=== PATIENT | female | born 1970 | race Caucasian/White ===

== ENCOUNTER 2017-09-26 18:29 | Emergency (ER) | payer BC, OTHER ==
[~2017-09-26] VITALS: Ht 152.4 cm; Wt 129.8 kg
[~2017-09-26 18:29] MED LIST: ADVIN10/60 INH; ALBUAER19 INH; CLR10 PO; IBUP-1427 PO; MULT-506 PO; PRLSR20 PO; SERT1TAB71 PO
[2017-09-26 18:37] VITALS: TEMP 36.7; Ht 152.4 cm; Wt 129.8 kg
--- NOTE | 2017-09-26 18:55 | EMERGENCY ROOM VISIT NOTE ---
History First contact with patient: 18:40 Chief Complaint: URINARY SYMPTOMS Stated Complaint: FEEL LIKE I HAVE A UTI History of Present Illness The patient is a 47 year old female who presents to the Emergency Room with complaints of urinary frequency and burning. This has been on going for 2 days. Lower suprapubic discomfort. No back pain. No fevers. No trauma. No nausea or vomiting. Taking Azo for symptoms. Went to urgent care and urine dip was "negative" thus referred here for evaluation. Denies frequent UTI resistance. Last UTI a year ago. No vaginal complaints or diarrhea. Started drinking several "gallons" of water and cranberry juice today. Source of History: patient Onset: 2 days ago Position: other (urinary system) Symptom Intensity: moderate Quality: cramping Modifying Factors (Worsening): urination Associated Symptoms: + abdominal pain (suprapubic), No fevers, No chills, No nausea, No vomiting Review of Systems See HPI for pertinent positives and negatives. A total of ten systems were reviewed and were otherwise negative. Past Medical/Surgical History Medical Problems: (1) Asthma Family History Aneurysm Social History Smoking Status: Never Smoker Marital Status: Occupation Status: employed Current/Historical Medications Scheduled Albuterol Sulf (Proventil 0.083% 2.5MG/3ML), 2.5 MG INH BID Furosemide (Lasix), 20 MG PO DAILY Loratadine (Claritin), 10 MG PO DAILY Multivitamin (Multivitamin), 1 TAB PO DAILY Nitrofurantoin Monohyd Macrocr (Macrobid), 100 MG PO BID Ranitidine (Zantac), 150 MG PO BID Scheduled PRN Ibuprofen Tab (Motrin), 600 MG PO Q4H PRN for Pain Phenazopyridine Hcl (Azo Tabs), 190 MG PO BID PRN for uti Physical Exam Vital Signs Date Time Temp Pulse Resp B/P (MAP) Pulse Ox O2 Delivery O2 Flow Rate FiO2 09/26/17 20:57 74 18 148/97 100 Room Air 09/26/17 18:37 36.7 77 20 174/108 100 Room Air Physical Exam GENERAL: Awake, alert, well-appearing, in no distress HENT: Normocephalic, atraumatic. Oropharynx unremarkable. EYES: Normal conjunctiva. Sclera non-icteric. NECK: Supple. No nuchal rigidity. RESPIRATORY: Clear to auscultation. No wheezes. Normal respiratory effort. CARDIAC: Normal rate. Normal rhythm. Extremities warm and well perfused. GI: Soft, non-distended. Mild suprapubic tenderness to palpation. No rebound or guarding. No masses. RECTAL: Deferred. MUSCULOSKELETAL: Atraumatic. Chest examination reveals no tenderness. There is no CVA tenderness to palpation. LOWER EXTREMITIES: Calves are equal size bilaterally and non-tender. No edema NEURO: Normal sensorium. No sensory or motor deficits noted. No facial droop. SKIN: Warm and dry. No rash or jaundice noted. Medical Decision & Procedures Laboratory Results 09/26/17 21:05 Red Blood Count 4.93, Mean Corpuscular Volume 88.8, Mean Corpuscular Hemoglobin 29.4, Mean Corpuscular Hemoglobin Concent 33.1, Mean Platelet Volume 10.1, Neutrophils (%) (Auto) 49.4, Lymphocytes (%) (Auto) 38.9, Monocytes (%) (Auto) 7.6, Eosinophils (%) (Auto) 3.3, Basophils (%) (Auto) 0.7, Neutrophils # (Auto) 4.08, Lymphocytes # (Auto) 3.21, Monocytes # (Auto) 0.63, Eosinophils # (Auto) 0.27, Basophils # (Auto) 0.06 09/26/17 21:05 Test 09/26/17 18:50 09/26/17 21:05 Urine Color YELLOW Urine Appearance CLEAR (CLEAR) Urine pH 7.0 (4.5-7.5) Urine Specific [place] 1.003 (1.000-1.030) Urine Protein NEG (NEG) Urine Glucose (UA) NEG (NEG) Urine Ketones NEG (NEG) Urine Occult Blood 2+ (NEG) Urine Nitrite NEG (NEG) Urine Bilirubin NEG (NEG) Urine Urobilinogen NEG (NEG) Urine Leukocyte Esterase TRACE (NEG) Urine WBC (Auto) /hpf (0-5) Urine RBC (Auto) /hpf (0-4) Urine Hyaline Casts (Auto) /lpf (0-5) Urine Epithelial Cells (Auto) /lpf (0-5) Urine Bacteria (Auto) (NEG) Urine RBC 0-4 /hpf (0-4) Urine WBC 0 /hpf (0-5) Urine Epithelial Cells 5-10 /lpf (0-5) Urine Bacteria NEG (NEG) White Blood Count 8.26 K/uL (4.8-10.8) Red Blood Count 4.93 M/uL (4.2-5.4) Hemoglobin 14.5 g/dL (12.0-16.0) Hematocrit 43.8 % (37-47) Mean Corpuscular Volume 88.8 fL (80-100) Mean Corpuscular Hemoglobin 29.4 pg (25-34) Mean Corpuscular Hemoglobin Concent 33.1 g/dl (32-36) Platelet Count 289 K/uL (130-400) Mean Platelet Volume 10.1 fL (7.4-10.4) Neutrophils (%) (Auto) 49.4 % Lymphocytes (%) (Auto) 38.9 % Monocytes (%) (Auto) 7.6 % Eosinophils (%) (Auto) 3.3 % Basophils (%) (Auto) 0.7 % Neutrophils # (Auto) 4.08 K/uL (1.4-6.5) Lymphocytes # (Auto) 3.21 K/uL (1.2-3.4) Monocytes # (Auto) 0.63 K/uL (0.11-0.59) Eosinophils # (Auto) 0.27 K/uL (0-0.5) Basophils # (Auto) 0.06 K/uL (0-0.2) RDW Standard Deviation 43.8 fL (36.4-46.3) RDW Coefficient of Variation 13.5 % (11.5-14.5) Immature Granulocyte % (Auto) 0.1 % Immature Granulocyte # (Auto) 0.01 K/uL (0.00-0.02) Anion Gap 7.0 mmol/L (3-11) Est Creatinine Clear Calc Drug Dose 142.6 ml/min Estimated GFR () 125.1 Estimated GFR (Non- 108.0 BUN/Creatinine Ratio 18.9 (10-20) Calcium Level 8.6 mg/dl (8.5-10.1) Human Chorionic Gonadotropin, Qual NEG (NEG) Laboratory results reviewed by wi ED Course 1839: The patient was evaluated in room C8. A complete history and physical exam was performed. 1954: Patient update on UA results and discussed blood work. No other complaints at this time. 2144: I reevaluated the patient. Discussed results and discharge instructions: She verbalized understanding and agreement. The patient is ready for discharge. Macrobid 100mg given PO. Medical Decision Differential diagnosis: Etiologies such as renal colic, appendicitis, diverticulitis, mesenteric ischemia, aortic pathology, infections, inflammatory bowel disease, PUD, biliary pathology, UTI, as well as others were entertained. Patient with approximately 2 days of urinary symptoms and some hematuria and suprapubic discomfort. No back pain. No nausea or vomiting or fevers. History of UTI in the past last year ago. On Azo starting today with some improvement. Fairly benign abdomen. Doubt appendicitis or perforation. Doubt hepatitis or pancreatitis. Negative . Does not seem consistent with nephrolithiasis. Not impressive UA but symptoms seem consistent with UTI. BMP and CBC unimpressive. Will start on Macrobid and send urine culture. Patient in agreement with plan and wished to defer additional testing at this time. Discussed return precautions. She is stable for discharge. Recommend follow- up in the next 3-5 days if not improving with PCP. If continued hematuria patient informed of need for Urology follow up. Head Trauma GCS Score: 15 Medication Reconcilliation Current Medication List: was personally reviewed by wi Blood Pressure Screening Patient's blood pressure: Elevated blood pressure Blood pressure disposition: Referred to PCP Impression Primary Impression: Urinary tract infection Additional Impression: Hematuria Departure Information Dispostion Home / Self-Care Condition GOOD Prescriptions Nitrofurantoin Monohyd Macrocr (Macrobid) 100 Mg Cap 100 MG PO BID for 5 Days, #10 CAP Prov: Gómez Martinez M.D. 09/26/17 Referrals Radha Bardales M.D. (PCP) Patient Instructions My [facility] Additional Instructions Maintain hydration. May utilize the Azo over the next 1-2 days. Utilized the antibiotic to help with possible urine infection. If you develop new or concerning symptoms including but not limited to different abdominal pain, nausea, vomiting, fevers, or significant back pain please return. With follow- up in the next 3-5 days with regular doctor if not improving; if continued urinary symptoms follow-up with urology in the next 1-2 weeks. Your urine will be sent for culture to determine what bacteria it is and if the antibiotic prescribed will treated. You may receive a phone call if you need to have your antibiotic changed otherwise continued as prescribed. Urology doctor if persistant urinary symptoms/blood in urine: Dr. Manuel Casey [address] [place] [address] Problem Qualifiers Primary Impression: Urinary tract infection Urinary tract infection type: acute cystitis Hematuria presence: with hematuria Qualified Codes: N30.01 - Acute cystitis with hematuria Additional Impression: Hematuria Hematuria type: unspecified type Qualified Codes: R31.9 - Hematuria, unspecified
[2017-09-26] MEDS ORDERED: ALBINS/ INH (19:16)
[2017-09-26] MEDS ORDERED: RANI150T85 PO (19:18)
[2017-09-26] MEDS ORDERED: FURO20TA PO (19:20)
[2017-09-26] MEDS ORDERED: PHEN95TA14 PO (19:20)
[2017-09-26 21:22] LABS: BASO % 0.7 %; BASO ABS # 0.06 K/uL (0-0.2); EOS % 3.3 %; EOS ABS # 0.27 K/uL (0-0.5); HEMATOCRIT 43.8 % (37-47); HEMOGLOBIN 14.5 g/dL (12.0-16.0); IG# 0.01 K/uL (0.00-0.02); LYMPH % 38.9 %; LYMPH ABS # 3.21 K/uL (1.2-3.4); MEAN CELL VOLUME 88.8 fL (80-100); MEAN CORPUSCULAR HEMOGLOBIN 29.4 pg (25-34); MEAN CORPUSCULAR HGB CONC 33.1 g/dl (32-36); MEAN PLATELET VOLUME 10.1 fL (7.4-10.4); MONO % 7.6 %; MONO ABS # 0.63 K/uL (0.11-0.59); NEUT % 49.4 %; NEUT ABS # 4.08 K/uL (1.4-6.5); PLATELET COUNT 289 K/uL (130-400); RED CELL DISTRIBUTION WIDTH CV 13.5 % (11.5-14.5); RED CELL DISTRIBUTION WIDTH SD 43.8 fL (36.4-46.3); WHITE BLOOD COUNT 8.26 K/uL (4.8-10.8)
[2017-09-26 21:38] LABS: CALCIUM 8.6 mg/dl (8.5-10.1); CREATININE 0.61 mg/dl (0.60-1.20); POTASSIUM 3.7 mmol/L (3.5-5.1)
[2017-09-26] MEDS ORDERED: NITROFURANTOIN MONOHYDRATE 100 MG CAP PO STA (21:41)
[2017-09-26] MEDS ORDERED: NITR-5 PO (21:45)
[2017-09-26] MEDS ORDERED: MACROBID 100MG HOME PACK 1 EA VIAL PO ONE (21:45)
[2017-09-26 21:57] VITALS: BP 144/99; PULSE 77; O2SAT 98
== END 2017-09-26 22:07 | disposition home or self-care (01) ==
LOC: C.EDB 18:31 → C.EDC 22:07
DX: N39.0 Urinary tract infection, site not specified (principal); J45.909 Unspecified asthma, uncomplicated; Z79.899 Other long term (current) drug therapy

== ENCOUNTER 2020-01-19 11:48 | Observation (INO) ==
--- OUTSIDE RECORDS SUMMARY | 2020-01-19 11:51 | External Medical Summary | Continuity of Care Document ---
:1970 Author Name Craig Trimble, Provider Address Unavailable Unavailable , Care Team Providers Name Role Phone Unavailable Unavailable Unavailable PCP, UNKNOWN Unavailable Unavailable Problems Active medical history not documented Allergies and Adverse Reactions Allergy history not documented Medications Medications not documented Procedures Procedures not documented Immunizations Immunizations not documented Plan of Treatment Planned Observations Planned Goals not documented Results No Known Results Results not documented
[2020-01-19] MEDS ORDERED: MoRPHine SULFATE 4 MG/ML 1 ML CARP\\VIAL IV STA ×2 (12:10→14:23)
[2020-01-19] MEDS ORDERED: SODIUM CHLORIDE 0.9% 1000ML 1,000 ML IV ONE (12:10)
[2020-01-19] MEDS ORDERED: ONDANSETRON INJ 2 MG/ML 2 ML VIAL IV STA (12:10)
--- NOTE | 2020-01-19 12:16 | Emergency Department Note ---
History of Present Illness General Chief complaint: Abdominal Pain Stated complaint: SEVERE UPPER ABD PAIN Time Seen by Provider: 01/19/20 11:56 History of Present Illness 49-year-old female who presents to the emergency department with severe upper abdominal pain, nausea, vomiting and diarrhea. The patient reports that she first noticed the discomfort approximately 36 hours ago. She woke up yesterday morning, she did feel better. By middle to late afternoon, the pain started again, and has progressively worsened. She reports the pain is mostly constant and squeezing. It does occasionally wax and wane. She denies any significant radiation into the back, lower abdomen or chest. She has not noticed any chest pain or shortness of breath, although she does have some discomfort with deep breathing. The patient reports that she has vomited twice, and has also had watery diarrhea twice since midnight. The patient did take some Pepto-Bismol last night, and reports that her stool did look dark. Patient has not noticed any blood in her vomitus or diarrhea. She denies any coffee-ground emesis. The patient does have a history of IBS with constipation, but is not on any medications for it. She reports a history of GERD, but has not had any typical burning sensation through the chest. The patient denies alcohol use. She does use an OTC NSAID for arthritis. She does not drink much coffee. Patient reports increased urinary frequency over the past several days. She denies urinary discomfort, bloody urine or urgency. Patient also denies patient currently rates her discomfort an 8 out of 10, reporting that the pain varies between a 6 and 10 out of 10. Home Medications Medication Instructions Recorded Confirmed Type albuterol sulfate 1 inh INHALATION DIRECTED PRN 01/19/20 01/19/20 History fluticasone propion-salmeterol 1 ea INHALATION DAILY 01/19/20 01/19/20 History [Wixela Inhub] furosemide 20 mg PO DAILY 01/19/20 01/19/20 History montelukast 10 mg PO DAILY 01/19/20 01/19/20 History omeprazole 20 mg PO DAILY 01/19/20 01/19/20 History Allergies Allergy/AdvReac Type Severity Reaction Status Date / Time Influenza Virus Vaccines Allergy Severe SEVERE Verified 09/26/17 19:15 REACTION. HOSPITALIZED bee venom protein (honey bee) Allergy Unknown . Unverified 09/26/17 19:15 Past Med/Surg History Medical History Asthma not well controlled GERD (gastroesophageal reflux disease) Irritable bowel syndrome with constipation Morbid obesity Osteoarthritis Surgical History H/O tubal ligation History of delivery X 3 History of tonsillectomy Social History Smoking Status: Never smoker marital status: Current Living Situation: Spouse and Family current occupational status: employed Feels Safe at Home: Yes Review of Systems 10 system review was performed and was negative except for pertinent positives and negatives as indicated in history of present illness Physical Exam Vital Signs Vital Signs - 24 hr 01/19/20 11:49 01/19/20 13:31 01/19/20 14:00 Temperature 36.7 C Temperature Source Oral Pulse Rate 87 77 Pulse Rate [Apical] 82 Pulse Rate from SpO2 Sensor 78 Pulse Rhythm [Apical] Pulse Strength [Apical] Respiratory Rate 18 19 24 Respiratory Effort / Characteristics Respiratory Depth Respiratory Pattern Blood Pressure 180/85 H 187/116 H Blood Pressure [Left Arm] 183/116 H Blood Pressure Mean 116 152 Blood Pressure Mean [Left Arm] 138 Blood Pressure Position [Left Arm] Pulse Oximetry 99 100 99 Oxygen Delivery Method Room Air Room Air Sepsis Recent Fever Within 48 Hours No Sepsis New/Unexplained Change in Mental Status N/A Sepsis Action Taken by Nursing No Action Required 01/19/20 14:30 01/19/20 15:14 01/19/20 15:17 Temperature Temperature Source Pulse Rate 80 87 Pulse Rate [Apical] 92 H Pulse Rate from SpO2 Sensor 80 88 Pulse Rhythm [Apical] Regular Pulse Strength [Apical] Normal Respiratory Rate 24 24 22 Respiratory Effort / Characteristics Non-Labored Spontaneous Respiratory Depth Normal Respiratory Pattern Regular Blood Pressure 201/96 H Blood Pressure [Left Arm] 183/118 H Blood Pressure Mean 110 Blood Pressure Mean [Left Arm] 139 Blood Pressure Position [Left Arm] Semi-fowlers Pulse Oximetry 98 99 98 Oxygen Delivery Method Room Air Sepsis Recent Fever Within 48 Hours Sepsis New/Unexplained Change in Mental Status Sepsis Action Taken by Nursing 01/19/20 15:19 01/19/20 15:23 01/19/20 16:00 Temperature Temperature Source Pulse Rate 81 90 Pulse Rate [Apical] Pulse Rate from SpO2 Sensor 82 90 Pulse Rhythm [Apical] Pulse Strength [Apical] Respiratory Rate 21 19 Respiratory Effort / Characteristics Respiratory Depth Respiratory Pattern Blood Pressure 183/118 H 186/85 H Blood Pressure [Left Arm] 201/96 H Blood Pressure Mean 148 112 Blood Pressure Mean [Left Arm] 131 Blood Pressure Position [Left Arm] Semi-fowlers Pulse Oximetry 98 98 Oxygen Delivery Method Sepsis Recent Fever Within 48 Hours Sepsis New/Unexplained Change in Mental Status Sepsis Action Taken by Nursing 01/19/20 17:00 01/19/20 18:00 Temperature Temperature Source Pulse Rate 88 83 Pulse Rate [Apical] Pulse Rate from SpO2 Sensor 88 83 Pulse Rhythm [Apical] Pulse Strength [Apical] Respiratory Rate 20 24 Respiratory Effort / Characteristics Respiratory Depth Respiratory Pattern Blood Pressure 184/108 H 185/92 H Blood Pressure [Left Arm] Blood Pressure Mean 136 119 Blood Pressure Mean [Left Arm] Blood Pressure Position [Left Arm] Pulse Oximetry 97 98 Oxygen Delivery Method Room Air Sepsis Recent Fever Within 48 Hours Sepsis New/Unexplained Change in Mental Status Sepsis Action Taken by Nursing CONSTITUTIONAL: Morbidly obese female in notable discomfort. HEENT: Normocephalic, atraumatic. No scleral icterus or conjunctival injection/pallor. Mucous membranes are dry.. NECK: Full active range of motion without discomfort. No JVD or carotid bruits. No nuchal rigidity. LYMPHATICS: No cervical chain adenopathy. RESPIRATORY: Clear to auscultation bilaterally with no wheezing, crackles, rhonchi or stridor. Deep breathing does cause mild discomfort. CARDIOVASCULAR: Regular rate and rhythm with no murmurs, rubs or gallops. GASTROINTESTINAL: Bowel sounds minimized in all quadrants. Patient has notable left upper quadrant and epigastric tenderness to palpation with positive rebound. No abdominal rigidity or obvious guarding. Patient has no significant tenderness to palpation through the left lower quadrant. Negative Rovsing sign and negative McBurney's point tenderness. Patient does have mild right upper quadrant tenderness to palpation as well. I am unable to elicit a positive Shaw sign. Negative CVA tenderness. MUSCULOSKELETAL: Full range of motion of all joints without discomfort. INTEGUMENTARY: No rash or other significant dermatologic conditions noted. HEMATOLOGIC: No ecchymosis or petechiae. PSYCHIATRIC: Positive affect. NEUROLOGIC: No focal neurologic deficits noted. Course Course Patient history and physical exam were performed. Nurses notes were reviewed. Vital signs were reviewed, showing an elevated blood pressure 180/85. The patient is not febrile, tachycardic or hypoxic. IV access was established, and labs were drawn. The patient was hydrated with a liter normal saline, and administered IV morphine and Zofran for pain and nausea. An ECG was performed and was normal. The patient was placed on cardiac surgeon. A portable chest x- ray was also normal. Review of labs showed an elevated white count of over 15,000 with a left shift and 3% bands. CMP and lipase were unremarkable. Urinalysis did not show any hematuria or signs of infection, and urine was negative. D-dimer was mildly elevated at 710. Work-up findings were discussed with the patient. The patient did report improvement of her nausea with the IV Zofran, but was still having intermittent pain rating a 7 out of 10. She also feels like the pain is up under the lower sternal region now. I did recommend CT angiography since she does have a mildly elevated D-dimer, as well as the CT of the abdomen and pelvis given her leukocytosis. The patient was in agreement. The patient was administered additional IV morphine for pain. CT with IV contrast of the abdomen and pelvis was completed, showing cholelithiasis with an acute cholecystitis. There was no evidence for pulmonary embolus or other concerning findings. The case was further discussed with Dr. Bailon, ED attending physician, who agrees with surgical consultation. The case was then discussed with Dr. Hamilton, general surgeon commercial drone pilot, who came to the emergency department for further evaluation. Please see his dictation for further treatment and final disposition. Prior to going to surgery, the patient did report improving pain and nausea with the medication provided. COVID-19 testing was negative. Administered Medications Discontinued Medications Sodium Chloride (Nss 1000ml) 1,000 mls @ 999 mls/hr IV .Q1H1M ONE Stop: 01/19/20 13:10 Last Admin: 01/19/20 13:27 Dose: 999 mls/hr Documented by: [id number] Ioversol (Optiray 320 125ml) 119 ml IV ONCE ONE Stop: 01/19/20 15:01 Last Admin: 01/19/20 15:01 Dose: 119 ml Documented by: [id number] Morphine Sulfate (Morphine Sulfate 4 Mg/Ml 1 Ml Carp\Vial) 4 mg IV NOW STA Stop: 01/19/20 12:11 Last Admin: 01/19/20 13:28 Dose: 4 mg Documented by: [id number] Morphine Sulfate (Morphine Sulfate 4 Mg/Ml 1 Ml Carp\Vial) 4 mg IV NOW STA Stop: 01/19/20 14:24 Last Admin: 01/19/20 16:38 Dose: 4 mg Documented by: [id number] Morphine Sulfate (Morphine Sulfate 4 Mg/Ml 1 Ml Carp\Vial) Confirm Administered Dose 4 mg .ROUTE .STK-MED ONE Stop: 01/19/20 16:37 Last Admin: 01/19/20 16:38 Dose: Not Given Documented by: [id number] Ondansetron HCl (Ondansetron Inj 2 Mg/Ml 2 Ml Vial) 4 mg IV NOW STA Stop: 01/19/20 12:11 Last Admin: 01/19/20 13:28 Dose: 4 mg Documented by: [id number] Medical Decision Making Medical Records Attestation: I reviewed the patient's medical records. Home Medications Current Medication List: was personally reviewed by me Laboratory Data Attestation: I reviewed the patient's lab results. Result diagrams: 01/19/20 13:32 01/19/20 13:32 Lab Results 01/19/20 01/19/20 01/19/20 Range/Units 13:32 13:32 13:32 WBC 15.79 H (4.8-10.8) K/uL RBC 4.98 (4.2-5.4) M/uL Hgb 15.2 (12.0-16.0) g/dL Hct 45.0 (37-47) % MCV 90.4 (80-100) fL MCH 30.5 (25-34) pg MCHC 33.8 (32-36) g/dL RDW Std Deviation 43.8 (36.4-46.3) fL RDW Coeff of Kimberly 13.4 (11.5-14.5) % Plt Count 328 (130-400) K/uL MPV 9.4 (7.4-10.4) fL Immature Gran % (Auto) 0.2 % Neut % (Auto) 72.9 % Lymph % (Auto) 19.6 % [place] % (Auto) 7.0 % Eos % (Auto) 0.2 % Baso % (Auto) 0.1 % Neut # (Auto) 11.50 H (1.4-6.5) K/uL Lymph # (Auto) 3.10 (1.2-3.4) K/uL [place] # (Auto) 1.11 H (0.11-0.59) K/uL Eos # (Auto) 0.03 (0-0.5) K/uL Baso # (Auto) 0.02 (0-0.2) K/uL Immature Gran # (Auto) 0.03 H (0.00-0.02) K/uL D-Dimer 710 H* (0-500) ug/L FEU Sodium 138 (136-145) mmol/L Potassium 3.8 (3.5-5.1) mmol/L Chloride 103 (98-107) mmol/L Carbon Dioxide 31 (21-32) mmol/L Anion Gap 4.0 (3-11) BUN 12 (7-18) mg/dl Creatinine 0.66 (0.6-1.2) mg/dl Est Cr Clr Drug Dosing 131.3 ml/min Est GFR ( Amer) 120.2 Est GFR (Non-Af Amer) 103.7 BUN/Creatinine Ratio 17.6 (10-20) Glucose 93 (70-99) mg/dl Calcium 9.1 (8.5-10.1) mg/dl Total Bilirubin 0.5 (0.2-1) mg/dl AST 22 (15-37) U/L ALT 46 (12-78) U/L Alkaline Phosphatase 113 (45-117) U/L Troponin I < 0.015 (0-0.045) ng/ml Total Protein 8.0 (6.4-8.2) gm/dl Albumin 3.6 (3.4-5.0) gm/dl Globulin 4.4 H (2.5-4.0) gm/dl Albumin/Globulin Ratio 0.8 L (0.9-2) Lipase 68 L (73-393) U/L Urine Color Urine Appearance (Clear) Urine pH (4.5-7.5) Ur Specific Phyllis (1.000-1.030) Urine Protein (Negative) Urine Glucose (UA) (Negative) Urine Ketones (Negative) Urine Blood (Negative) Urine Nitrite (Negative) Urine Bilirubin (Negative) Urine Urobilinogen (Negative) Ur Leukocyte Esterase (Negative) POC Ur Test (NEG) SARS-CoV-2 Ag (Rapid) (Negative) 01/19/20 01/19/20 01/19/20 Range/Units 13:32 Unknown Unknown WBC (4.8-10.8) K/uL RBC (4.2-5.4) M/uL Hgb (12.0-16.0) g/dL Hct (37-47) % MCV (80-100) fL MCH (25-34) pg MCHC (32-36) g/dL RDW Std Deviation (36.4-46.3) fL RDW Coeff of Kimberly (11.5-14.5) % Plt Count (130-400) K/uL MPV (7.4-10.4) fL Immature Gran % (Auto) % Neut % (Auto) % Lymph % (Auto) % [place] % (Auto) % Eos % (Auto) % Baso % (Auto) % Neut # (Auto) (1.4-6.5) K/uL Lymph # (Auto) (1.2-3.4) K/uL [place] # (Auto) (0.11-0.59) K/uL Eos # (Auto) (0-0.5) K/uL Baso # (Auto) (0-0.2) K/uL Immature Gran # (Auto) (0.00-0.02) K/uL D-Dimer (0-500) ug/L FEU Sodium (136-145) mmol/L Potassium (3.5-5.1) mmol/L Chloride (98-107) mmol/L Carbon Dioxide (21-32) mmol/L Anion Gap (3-11) BUN (7-18) mg/dl Creatinine (0.6-1.2) mg/dl Est Cr Clr Drug Dosing ml/min Est GFR ( Amer) Est GFR (Non-Af Amer) BUN/Creatinine Ratio (10-20) Glucose (70-99) mg/dl Calcium (8.5-10.1) mg/dl Total Bilirubin (0.2-1) mg/dl AST (15-37) U/L ALT (12-78) U/L Alkaline Phosphatase (45-117) U/L Troponin I (0-0.045) ng/ml Total Protein (6.4-8.2) gm/dl Albumin (3.4-5.0) gm/dl Globulin (2.5-4.0) gm/dl Albumin/Globulin Ratio (0.9-2) Lipase (73-393) U/L Urine Color Yellow Urine Appearance Clear (Clear) Urine pH 7.0 (4.5-7.5) Ur Specific Phyllis 1.014 (1.000-1.030) Urine Protein Negative (Negative) Urine Glucose (UA) Negative (Negative) Urine Ketones Negative (Negative) Urine Blood Negative (Negative) Urine Nitrite Negative (Negative) Urine Bilirubin Negative (Negative) Urine Urobilinogen Negative (Negative) Ur Leukocyte Esterase Negative (Negative) POC Ur Test NEG (NEG) SARS-CoV-2 Ag (Rapid) Negative (Negative) Imaging Data Attestation: I personally reviewed and interpreted this imaging study as follows: My Impression: My interpretation of a portable chest x-ray does not show any consolidations, pneumothorax or obvious subdiaphragmatic air. My interpretation of a CT with IV contrast of the abdomen and pelvis confirms an acute cholecystitis with cholelithiasis. Chest CT angiography did not show any obvious pulmonary emboli. Radiologist reports were reviewed. Radiologist's Impression: SINGLE VIEW CHEST CLINICAL HISTORY: Epigastric abdominal pain FINDINGS: An AP, portable, upright chest radiograph is compared to study dated 11/13/2014. The cardiomediastinal silhouette is unremarkable. There is mild bibasilar atelectasis. The lungs and pleural spaces are otherwise clear. No pneumothorax is seen. The bony thorax is grossly intact. IMPRESSION: No active disease in the chest. CT ANGIOGRAM OF THE CHEST; CT SCAN OF THE ABDOMEN AND PELVIS WITH IV CONTRAST CLINICAL HISTORY: Epigastric abdominal pain. Elevated d-dimer. COMPARISON STUDY: Chest x-ray dated 01/19/2020. CT scan of the chest, abdomen, and pelvis dated 11/13/2014. TECHNIQUE: Following the IV administration of 119 of Optiray 320, CT angiogram of the chest is performed from the upper abdomen to the thoracic inlet utilizing the pulmonary embolus protocol. Images are reviewed in the axial, sagittal, coronal planes. 3-D MIPS images are created and assessed. Subsequently, CT scan of the abdomen and pelvis was performed from the lung bases to the proximal femora. Images are reviewed in the axial, sagittal, and coronal planes. IV contrast was administered without complication. A dose lowering technique was utilized adhering to the principles of ALARA. CT DOSE: 2282.31 mGy.cm FINDINGS: CHEST: Thyroid: Imaged portions of the thyroid gland are normal in size and attenuation . Thoracic aorta: The thoracic aorta is normal in caliber and demonstrates standard 3-vessel arch anatomy. No dissection is seen. Pulmonary vasculature: The pulmonary trunk is normal in caliber. There are no filling defects identified in the main, lobar, or segmental pulmonary arteries to indicate pulmonary embolus. Heart: The heart is normal in size and configuration, and without pericardial e ffusion. Lungs and pleural spaces: The lungs and pleural spaces are clear. Mediastinum: There is no mediastinal lymphadenopathy. Meghan: Clear. Axillae: There is no axillary lymphadenopathy. Bony thorax: No lytic or blastic lesions are identified. ABDOMEN AND PELVIS: Liver: The contrast-enhanced liver is mildly enlarged measuring 19.1 cm in length. The liver demonstrates diminished attenuation consistent with hepatic steatosis. There is no intrahepatic or ductal dilatation. The hepatic veins and portal veins are patent. Gallbladder: There are calcified gallstones, with a gallstone seen in the region of the gallbladder neck on image #104. The gallbladder is distended. The gallbladder wall is thickened and there is pericholecystic inflammation. Spleen: Normal in size and attenuation. Pancreas: Unremarkable. Adrenal glands: Unremarkable. Kidneys: The contrast enhanced kidneys are normal in size and without hydronephrosis. The kidneys enhance symmetrically. Abdominal vasculature: The abdominal aorta is normal in course and caliber noting mild atherosclerotic calcification. Stomach and bowel: There is a small hiatal hernia. No bowel obstruction is seen. There is mild to moderate diverticulosis of the left colon without CT evidence of acute diverticulitis. The appendix is not identified. Peritoneum: There is no intraperitoneal free air or abdominal ascites. There is a fat-containing umbilical hernia. Lymphadenopathy: None. Pelvic viscera: The bladder, uterus, and adnexa are normal as imaged. Skeletal structures: No lytic or blastic lesions are seen. There is mild lumbosacral spondylosis. Sclerotic change is noted in the pubic symphysis. IMPRESSION: 1. Cholelithiasis with acute cholecystitis. 2. There is no evidence of pulmonary embolus in the main, lobar, or segmental pulmonary arteries. 3. The lungs are clear. 4. The liver is mildly enlarged and steatotic. 5. Colonic diverticulosis without CT evidence of acute diverticulitis. ECG Data Attestation: I personally reviewed and interpreted this ECG as follows: Indication: + abdominal pain, + nausea and + vomiting Rate (beats per minute): 82 Rhythm: + normal sinus ECG Intervals/blocks: + Normal QRS, + Normal QT, + Normal [place] and + Normal QT-c ECG [place]: + Normal ECG ST segments: + Normal ST segments Comparison ECG Date: from (11/13/2014) Change: no significant change Blood Pressure Blood Pressure Findings: Elevated blood pressure MDM Narrative Cardiac monitoring: An order was placed for continuous cardiac monitoring. The monitor shows a rate of 82 bpm with a normal sinus rhythm. monitoring coordinator history was reviewed throughout the evaluation, and no dysrhythmias were noted. Patient presents to the emergency department with complaint of intermittent epigastric pain. CT imaging today does show evidence for an acute cholecystitis with cholelithiasis also present. Additional work-up today is not consistent with acute pancreatitis, hepatitis, UTI or . Chest CT angiography does not show evidence for pneumonia, pneumothorax or pulmonary emboli. Patient does have a strong family history of coronary artery disease, however her work-up today is not suggestive of myocardial infarction. Her troponin and ECG were normal. Impression & Plan Acute calculous cholecystitis, Nausea, vomiting and diarrhea Discharge Plan Visit Data Chief Complaint: Abdominal Pain Stated Complaint: SEVERE UPPER ABD PAIN ED Provider: Milan Bailon ED Midlevel Provider: Pasquale Padgett Discharge Problem: Acute calculous cholecystitis, Nausea, vomiting and diarrhea Patient Disposition: Still a Patient Discharge Instructions Interventions: ED Discharge Assessment Last Done: 01/19/20 18:06
--- NOTE | 2020-01-19 12:58 | XRay Report ---
SINGLE VIEW CHEST CLINICAL HISTORY: Epigastric abdominal pain FINDINGS: An AP, portable, upright chest radiograph is compared to study dated 11/13/2014. The cardiom ediastinal silhouette is unremarkable. There is mild bibasilar atelectasis. The lungs and pleural spa [place] are otherwise clear. No pneumothorax is seen. The bony thorax is grossly intact. IMPRESSION: No active disease in the chest. ACT 112: Negative or not required by law. Electronically signed by: Sourav Vasquez M.D. 01/19/2020 12:56 PM
[2020-01-19 13:42] LABS: Basophils # (auto) 0.02 K/uL (0-0.2); Basophils % (auto) 0.1 %; Eosinophils # (auto) 0.03 K/uL (0-0.5); Eosinophils % (auto) 0.2 %; Hemoglobin 15.2 g/dL (12.0-16.0); Immature Granulocytes # (auto) 0.03 K/uL (0.00-0.02); Immature Granulocytes % (auto) 0.2 %; Lymphocytes % (auto) 19.6 %; Mean Corpuscular Hemoglobin 30.5 pg (25-34); Mean Corpuscular Hgb Conc 33.8 g/dL (32-36); Mean Corpuscular Volume 90.4 fL (80-100); Mean Platelet Volume 9.4 fL (7.4-10.4); Monocytes # (auto) 1.11 K/uL (0.11-0.59); Neutrophils % (auto) 72.9 %; Platelet Count 328 K/uL (130-400); RDW Coefficient of Variation 13.4 % (11.5-14.5); RDW Standard Deviation 43.8 fL (36.4-46.3); Red Blood Count 4.98 M/uL (4.2-5.4); White Blood Count 15.79 K/uL (4.8-10.8)
[2020-01-19 13:46] LABS: Appearance Urine Clear (Clear); Bilirubin Urine Negative (Negative); Blood Urine Negative (Negative); Color Urine Yellow; Glucose Urine UA Negative (Negative); Ketones Urine Negative (Negative); Leukocyte Esterase Urine Negative (Negative); Nitrite Urine Negative (Negative); Protein Urine Negative (Negative); Specific Gravity Urine 1.014 (1.000-1.030); Urobilinogen Urine Negative (Negative)
[2020-01-19 14:01] LABS: Alanine Aminotransferase 46 U/L (12-78); Albumin Level 3.6 gm/dl (3.4-5.0); Aspartate Aminotransferase 22 U/L (15-37); BUN Creatinine Ratio 17.6 (10-20); Blood Urea Nitrogen 12 mg/dl (7-18); Calcium 9.1 mg/dl (8.5-10.1); Carbon Dioxide 31 mmol/L (21-32); Chloride 103 mmol/L (98-107); Creatinine Clr Calc Pharmacy 131.3 ml/min; Est GFR (African American) 120.2; Est GFR (Non-African American) 103.7; Glucose 93 mg/dl (70-99); Lipase 68 U/L (73-393); Potassium 3.8 mmol/L (3.5-5.1); Sodium 138 mmol/L (136-145)
[2020-01-19 14:06] LABS: Albumin Globulin Ratio 0.8 (0.9-2); Alkaline Phosphatase 113 U/L (45-117); Bilirubin,Total 0.5 mg/dl (0.2-1); Globulin 4.4 gm/dl (2.5-4.0); Troponin I < 0.015 ng/ml (0-0.045)
[2020-01-19 14:16] LABS: D Dimer 710 ug/L FEU (0-500)
[2020-01-19] MEDS ORDERED: OPTIRAY 320 125ml IV ONE (15:00)
--- NOTE | 2020-01-19 15:20 | CT Scan Report ---
CT ANGIOGRAM OF THE CHEST; CT SCAN OF THE ABDOMEN AND PELVIS WITH IV CONTRAST CLINICAL HISTORY: Epigastric abdominal pain. Elevated d-dimer. COMPARISON STUDY: Chest x-ray dated 01/19/2020. CT scan of the chest, abdomen, and pelvis dated 11/13. TECHNIQUE: Following the IV administration of 119 of Optiray 320, CT angiogram of the chest is perfor med from the upper abdomen to the thoracic inlet utilizing the pulmonary embolus protocol. Images are reviewed in the axial, sagittal, coronal planes. 3-D MIPS images are created and assessed. Subsequen tly, CT scan of the abdomen and pelvis was performed from the lung bases to the proximal femora. Imag es are reviewed in the axial, sagittal, and coronal planes. IV contrast was administered without comp lication. A dose lowering technique was utilized adhering to the principles of ALARA. CT DOSE: 2282.31 mGy.cm FINDINGS: CHEST: Thyroid: Imaged portions of the thyroid gland are normal in size and attenuation. Thoracic aorta: The thoracic aorta is normal in caliber and demonstrates standard 3-vessel arch anato my. No dissection is seen. Pulmonary vasculature: The pulmonary trunk is normal in caliber. There are no filling defects identif ied in the main, lobar, or segmental pulmonary arteries to indicate pulmonary embolus. Heart: The heart is normal in size and configuration, and without pericardial effusion. Lungs and pleural spaces: The lungs and pleural spaces are clear. Mediastinum: There is no mediastinal lymphadenopathy. Meghan: Clear. Axillae: There is no axillary lymphadenopathy. Bony thorax: No lytic or blastic lesions are identified. ABDOMEN AND PELVIS: Liver: The contrast-enhanced liver is mildly enlarged measuring 19.1 cm in length. The liver demonstr ates diminished attenuation consistent with hepatic steatosis. There is no intrahepatic or ductal dil atation. The hepatic veins and portal veins are patent. Gallbladder: There are calcified gallstones, with a gallstone seen in the region of the gallbladder n george on image #104. The gallbladder is distended. The gallbladder wall is thickened and there is peric holecystic inflammation. Spleen: Normal in size and attenuation. Pancreas: Unremarkable. Adrenal glands: Unremarkable. Kidneys: The contrast enhanced kidneys are normal in size and without hydronephrosis. The kidneys enh ance symmetrically. Abdominal vasculature: The abdominal aorta is normal in course and caliber noting mild atheroscleroti c calcification. Stomach and bowel: There is a small hiatal hernia. No bowel obstruction is seen. There is mild to mod erate diverticulosis of the left colon without CT evidence of acute diverticulitis. The appendix is not identified. Peritoneum: There is no intraperitoneal free air or abdominal ascites. There is a fat-containing umbi lical hernia. Lymphadenopathy: None. Pelvic viscera: The bladder, uterus, and adnexa are normal as imaged. Skeletal structures: No lytic or blastic lesions are seen. There is mild lumbosacral spondylosis. Scl erotic change is noted in the pubic symphysis. IMPRESSION: 1. Cholelithiasis with acute cholecystitis. 2. There is no evidence of pulmonary embolus in the main, lobar, or segmental pulmonary arteries. 3. The lungs are clear. 4. The liver is mildly enlarged and steatotic. 5. Colonic diverticulosis without CT evidence of acute diverticulitis. ACT 112: Negative or not required by law. Electronically signed by: Sourav Vasquez M.D. 01/19/2020 3:19 PM
[2020-01-19] MEDS ORDERED: MoRPHine SULFATE 4 MG/ML 1 ML CARP\\VIAL ONE (16:36)
--- NOTE | 2020-01-19 17:11 | History & Physical Report ---
Date of Service January 19, 2020 Assessment & Plan (1) Acute calculous cholecystitis: Admission and Anticipated Discharge Date Admission Date: This patient has gallstones. She has right upper quadrant pain for at least the last 2 days. She had a CAT scan that shows gallbladder wall thickening with pericholecystic fluid and cholelithiasis. There also appears to be a stone within the neck of the gallbladder. This is all consistent with acute cholecystitis. I explained that to the patient. I recommended a laparoscopic cholecystectomy and explained that it may need to be converted to an open procedure. I explained the possible complications associated with those procedures and she understands. I answered her questions. She has signed a consent form. History of Present Illness Chief Complaint: Right upper quadrant pain Primary Care Provider: Radha Bardales MD This is a 49-year-old female who presented to the emergency room with a complaint of right upper quadrant pain. The patient states that 2 days ago in the evening she developed some discomfort. It lasted for about 2 to 3 hours and then resolved. Last night at 4 PM she again developed discomfort except this time it was much more sharp. It was also located in the right upper quadrant. It does radiate around to her back. It does not radiate to the left or into the lower abdomen. Some of the discomfort does go towards the umbilicus. It is sharp and unrelenting at the present time. She had nausea and had 2 episodes of vomiting without hematemesis. She does have a history of reflux however the symptoms are completely different. She has recently had some diarrhea as well. That is different for her and that she normally has some degree of constipation. She had no melena or hematochezia. She does not think she had fever. She had one other episode similar to the 1 2 days ago that was self-limited that was about a week ago but she was then well until the day before yesterday. She has no dysuria or hematuria. She has never had jaundice, hepatitis or pancreatitis. Allergies Allergy/AdvReac Type Severity Reaction Status Date / Time Influenza Virus Vaccines Allergy Severe SEVERE Verified 09/26/17 19:15 REACTION. HOSPITALIZED bee venom protein (honey bee) Allergy Unknown . Unverified 09/26/17 19:15 Home Medications Medication Instructions Recorded Confirmed Type albuterol sulfate 1 inh INHALATION DIRECTED PRN 01/19/20 01/19/20 History fluticasone propion-salmeterol 1 ea INHALATION DAILY 01/19/20 01/19/20 History [Wixela Inhub] furosemide 20 mg PO DAILY 01/19/20 01/19/20 History montelukast 10 mg PO DAILY 01/19/20 01/19/20 History omeprazole 20 mg PO DAILY 01/19/20 01/19/20 History Past Med/Surg History Medical History (Updated 01/19/20 @ 17:13 by Jose Luis Hamilton MD) Asthma GERD (gastroesophageal reflux disease) Irritable bowel syndrome with constipation Osteoarthritis Surgical History (Updated 01/19/20 @ 17:12 by Jose Luis Hamilton MD) History of delivery X 3 History of tonsillectomy Social History Smoking Status: Never smoker marital status: Current Living Situation: Spouse and Family current occupational status: employed Feels Safe at Home: Yes Review of Systems Review of Systems: All systems reviewed & are unremarkable except as noted in HPI & below Physical Exam Constitutional: + obese; no acute distress Respiratory: normal respiratory effort, lungs clear to auscultation Cardiovascular: Rate/Rhythm: regular rate and regular rhythm Gastrointestinal (Abdomen): Inspection/Auscultation: normal bowel sounds; abdomen not distended Percussion/Palpation: + abdomen tender (Right upper quadrant to moderate palpation) and abdomen soft Skin: no rashes, warm and dry Lymphatic: no cervical lymphadenopathy Results & Data Results & Data ([facility]) Vital Signs (Past 12 Hours) Vital Signs Temp Pulse Pulse Resp BP BP Pulse Ox 01/19/20 15:19 201/96 H 01/19/20 15:17 92 H 22 183/118 H 98 01/19/20 14:30 80 24 98 01/19/20 14:00 77 24 187/116 H 99 01/19/20 13:31 82 19 183/116 H 100 01/19/20 11:49 36.7 C 87 18 180/85 H 99 Laboratory Results 01/19/20 01/19/20 01/19/20 Range/Units Unknown 13:32 13:32 WBC (4.8-10.8) K/uL RBC (4.2-5.4) M/uL Hgb (12.0-16.0) g/dL Hct (37-47) % MCV (80-100) fL MCH (25-34) pg MCHC (32-36) g/dL RDW Std Deviation (36.4-46.3) fL RDW Coeff of Kimberly (11.5-14.5) % Plt Count (130-400) K/uL MPV (7.4-10.4) fL Immature Gran % (Auto) % Neut % (Auto) % Lymph % (Auto) % [place] % (Auto) % Eos % (Auto) % Baso % (Auto) % Neut # (Auto) (1.4-6.5) K/uL Lymph # (Auto) (1.2-3.4) K/uL [place] # (Auto) (0.11-0.59) K/uL Eos # (Auto) (0-0.5) K/uL Baso # (Auto) (0-0.2) K/uL Immature Gran # (Auto) (0.00-0.02) K/uL D-Dimer (0-500) ug/L FEU Sodium 138 (136-145) mmol/L Potassium 3.8 (3.5-5.1) mmol/L Chloride 103 (98-107) mmol/L Carbon Dioxide 31 (21-32) mmol/L Anion Gap 4.0 (3-11) BUN 12 (7-18) mg/dl Creatinine 0.66 (0.6-1.2) mg/dl Est Cr Clr Drug Dosing 131.3 ml/min Est GFR ( Amer) 120.2 Est GFR (Non-Af Amer) 103.7 BUN/Creatinine Ratio 17.6 (10-20) Glucose 93 (70-99) mg/dl Calcium 9.1 (8.5-10.1) mg/dl Total Bilirubin 0.5 (0.2-1) mg/dl AST 22 (15-37) U/L ALT 46 (12-78) U/L Alkaline Phosphatase 113 (45-117) U/L Troponin I < 0.015 (0-0.045) ng/ml Total Protein 8.0 (6.4-8.2) gm/dl Albumin 3.6 (3.4-5.0) gm/dl Globulin 4.4 H (2.5-4.0) gm/dl Albumin/Globulin Ratio 0.8 L (0.9-2) Lipase 68 L (73-393) U/L Urine Color Yellow Urine Appearance Clear (Clear) Urine pH 7.0 (4.5-7.5) Ur Specific [place] 1.014 (1.000-1.030) Urine Protein Negative (Negative) Urine Glucose (UA) Negative (Negative) Urine Ketones Negative (Negative) Urine Blood Negative (Negative) Urine Nitrite Negative (Negative) Urine Bilirubin Negative (Negative) Urine Urobilinogen Negative (Negative) Ur Leukocyte Esterase Negative (Negative) POC Ur Test NEG (NEG) 01/19/20 01/19/20 Range/Units 13:32 13:32 WBC 15.79 H (4.8-10.8) K/uL RBC 4.98 (4.2-5.4) M/uL Hgb 15.2 (12.0-16.0) g/dL Hct 45.0 (37-47) % MCV 90.4 (80-100) fL MCH 30.5 (25-34) pg MCHC 33.8 (32-36) g/dL RDW Std Deviation 43.8 (36.4-46.3) fL RDW Coeff of Kimberly 13.4 (11.5-14.5) % Plt Count 328 (130-400) K/uL MPV 9.4 (7.4-10.4) fL Immature Gran % (Auto) 0.2 % Neut % (Auto) 72.9 % Lymph % (Auto) 19.6 % [place] % (Auto) 7.0 % Eos % (Auto) 0.2 % Baso % (Auto) 0.1 % Neut # (Auto) 11.50 H (1.4-6.5) K/uL Lymph # (Auto) 3.10 (1.2-3.4) K/uL [place] # (Auto) 1.11 H (0.11-0.59) K/uL Eos # (Auto) 0.03 (0-0.5) K/uL Baso # (Auto) 0.02 (0-0.2) K/uL Immature Gran # (Auto) 0.03 H (0.00-0.02) K/uL D-Dimer 710 H* (0-500) ug/L FEU Sodium (136-145) mmol/L Potassium (3.5-5.1) mmol/L Chloride (98-107) mmol/L Carbon Dioxide (21-32) mmol/L Anion Gap (3-11) BUN (7-18) mg/dl Creatinine (0.6-1.2) mg/dl Est Cr Clr Drug Dosing ml/min Est GFR ( Amer) Est GFR (Non-Af Amer) BUN/Creatinine Ratio (10-20) Glucose (70-99) mg/dl Calcium (8.5-10.1) mg/dl Total Bilirubin (0.2-1) mg/dl AST (15-37) U/L ALT (12-78) U/L Alkaline Phosphatase (45-117) U/L Troponin I (0-0.045) ng/ml Total Protein (6.4-8.2) gm/dl Albumin (3.4-5.0) gm/dl Globulin (2.5-4.0) gm/dl Albumin/Globulin Ratio (0.9-2) Lipase (73-393) U/L Urine Color Urine Appearance (Clear) Urine pH (4.5-7.5) Ur Specific [place] (1.000-1.030) Urine Protein (Negative) Urine Glucose (UA) (Negative) Urine Ketones (Negative) Urine Blood (Negative) Urine Nitrite (Negative) Urine Bilirubin (Negative) Urine Urobilinogen (Negative) Ur Leukocyte Esterase (Negative) POC Ur Test (NEG) Diagnostic Findings CT ANGIOGRAM OF THE CHEST; CT SCAN OF THE ABDOMEN AND PELVIS WITH IV CONTRAST CLINICAL HISTORY: Epigastric abdominal pain. Elevated d-dimer. COMPARISON STUDY: Chest x-ray dated 01/19/2020. CT scan of the chest, abdomen, and pelvis dated 11/13/2014. TECHNIQUE: Following the IV administration of 119 of Optiray 320, CT angiogram of the chest is performed from the upper abdomen to the thoracic inlet utilizing the pulmonary embolus protocol. Images are reviewed in the axial, sagittal, coronal planes. 3-D MIPS images are created and assessed. Subsequently, CT scan of the abdomen and pelvis was performed from the lung bases to the proximal femora. Images are reviewed in the axial, sagittal, and coronal planes. IV contrast was administered without complication. A dose lowering technique was utilized adhering to the principles of ALARA. CT DOSE: 2282.31 mGy.cm FINDINGS: CHEST: Thyroid: Imaged portions of the thyroid gland are normal in size and attenuation. Thoracic aorta: The thoracic aorta is normal in caliber and demonstrates standard 3-vessel arch anatomy. No dissection is seen. Pulmonary vasculature: The pulmonary trunk is normal in caliber. There are no filling defects identified in the main, lobar, or segmental pulmonary arteries to indicate pulmonary embolus. Heart: The heart is normal in size and configuration, and without pericardial effusion. Lungs and pleural spaces: The lungs and pleural spaces are clear. Mediastinum: There is no mediastinal lymphadenopathy. Meghan: Clear. Axillae: There is no axillary lymphadenopathy. Bony thorax: No lytic or blastic lesions are identified. ABDOMEN AND PELVIS: Liver: The contrast-enhanced liver is mildly enlarged measuring 19.1 cm in length. The liver demonstrates diminished attenuation consistent with hepatic steatosis. There is no intrahepatic or ductal dilatation. The hepatic veins and portal veins are patent. Gallbladder: There are calcified gallstones, with a gallstone seen in the region of the gallbladder neck on image #104. The gallbladder is distended. The gallbladder wall is thickened and there is pericholecystic inflammation. Spleen: Normal in size and attenuation. Pancreas: Unremarkable. Adrenal glands: Unremarkable. Kidneys: The contrast enhanced kidneys are normal in size and without hydronephrosis. The kidneys enhance symmetrically. Abdominal vasculature: The abdominal aorta is normal in course and caliber noting mild atherosclerotic calcification. Stomach and bowel: There is a small hiatal hernia. No bowel obstruction is seen. There is mild to moderate diverticulosis of the left colon without CT evidence of acute diverticulitis. The appendix is not identified. Peritoneum: There is no intraperitoneal free air or abdominal ascites. There is a fat-containing umbilical hernia. Lymphadenopathy: None. Pelvic viscera: The bladder, uterus, and adnexa are normal as imaged. Skeletal structures: No lytic or blastic lesions are seen. There is mild lumbosacral spondylosis. Sclerotic change is noted in the pubic symphysis. IMPRESSION: 1. Cholelithiasis with acute cholecystitis. 2. There is no evidence of pulmonary embolus in the main, lobar, or segmental pulmonary arteries. 3. The lungs are clear. 4. The liver is mildly enlarged and steatotic. 5. Colonic diverticulosis without CT evidence of acute diverticulitis.
[2020-01-19] MEDS ORDERED: HEPARIN (PORCINE) 1000 UNIT/ML 10 ML (CATH LAB USE ONLY) ONE (17:50)
[2020-01-19] MEDS ORDERED: BUPIVACAINE 0.5 % 5 MG/1 ML MPF 30ML VIAL ONE (17:50)
--- NOTE | 2020-01-19 18:26 | Electrocardiogram Report ---
Test Reason : Blood Pressure : / mmHG Vent. Rate : 082 BPM Atrial Rate : 082 BPM P-R Int : 128 ms QRS Dur : 074 ms QT Int : 362 ms P-R-T Axes : 028 026 024 degrees QTc Int : 422 ms Normal sinus rhythm Normal ECG When compared with ECG of 13-NOV-2014 17:00, No significant change was found Confirmed by Sage Spicer ([id number]) on 01/19/2020 6:26:06 PM Referred By: REFERRED SELF Confirmed By:Sage Spicer
[2020-01-19] MEDS ORDERED: fentaNYL citrate 100 MCG/2 ML VIAL ONE ×3 (19:08→21:40)
[2020-01-19] MEDS ORDERED: LIDOCAINE HCL 2% 2 ML VIAL/AMP(20MG/ML) INFIL ONE (19:11)
[2020-01-19] MEDS ORDERED: PROPOFOL IV EMULSION 10 MG/ML 20 ML VIAL IV ONE (19:11)
[2020-01-19] MEDS ORDERED: ROCURONIUM BROMIDE 10 MG/ML 5 ML VIAL IV ONE (19:11)
[2020-01-19] MEDS ORDERED: SUCCINYLCHOLINE 100MG/5ML SYR IV ONE ×2 (19:11→19:45)
[2020-01-19] MEDS ORDERED: PHENYLEPHRINE 100MCG/ML 5ML SYR IV PRN (19:13)
[2020-01-19] MEDS ORDERED: ATROPINE SULFATE 0.1 MG/ML 10ML SYR IV PRN (19:13)
[2020-01-19] MEDS ORDERED: ONDANSETRON INJ 2 MG/ML 2 ML VIAL IV PRN ×2 (19:13→22:37)
[2020-01-19] MEDS ORDERED: HYDROmorphone INJ 1 MG/ML SYRINGE IV PRN (19:13)
[2020-01-19] MEDS ORDERED: LABETALOL HCL IV 5 MG/ML 20ML IV PRN (19:13)
[2020-01-19] MEDS ORDERED: ePHEDrine sulfate 50 MG/ML AMP IV PRN (19:13)
[2020-01-19] MEDS ORDERED: MEPERIDINE HCL 25 MG/ML CARP/VIAL IV PRN (19:13)
[2020-01-19] MEDS ORDERED: ALBUT/IPRATROP 3MG/0.5MG NEB 3 ML VIAL ONE (19:17)
--- NOTE | 2020-01-19 19:24 | Anesthesiology Consultation ---
Date of Service January 19, 2020 Covid 19 negative today. Assessment & Plan (1) Encounter for pre-operative examination: Chart Review Chart Review: Acceptable Risk for Surgery (necessary surgery) and Patient NOT seen in Pre Admission Testing Consults Requested none History Surgery Operation Date: 01/19/20 07:00 Proposed Procedures p Laparoscopic Cholecystectomy - Jose Luis Hamilton MD Height/Weight Height: 5 ft Weight: 133.4 kg Allergies Allergy/AdvReac Type Severity Reaction Status Date / Time Influenza Virus Vaccines Allergy Severe SEVERE Verified 09/26/17 19:15 REACTION. HOSPITALIZED bee venom protein (honey bee) Allergy Unknown . Unverified 09/26/17 19:15 Medications Home Medications Medication Instructions Recorded Confirmed Last Taken albuterol sulfate 1 inh INHALATION DIRECTED PRN 01/19/20 01/19/20 Unknown fluticasone propion-salmeterol 1 ea INHALATION DAILY 01/19/20 01/19/20 Unknown [Wixela Inhub] furosemide 20 mg PO DAILY 01/19/20 01/19/20 Unknown montelukast 10 mg PO DAILY 01/19/20 01/19/20 Unknown omeprazole 20 mg PO DAILY 01/19/20 01/19/20 Unknown NPO Date Last Intake of Fluids: 01/19/20 Time Last Intake of Fluids: 09:30 Date Last Intake of Solids: 01/18/20 Time Last Intake of Solids: 16:00 Past Medical History Medical History Asthma not well controlled GERD (gastroesophageal reflux disease) Irritable bowel syndrome with constipation Morbid obesity Osteoarthritis Past Surgical History Surgical History H/O tubal ligation History of delivery X 3 History of tonsillectomy Social History Smoking Status: Never smoker Physical Exam Vital Signs Last Vital Signs Temp 36.7 C 01/19/20 11:49 Pulse 83 01/19/20 18:00 Resp 24 01/19/20 18:00 BP 185/92 H 01/19/20 18:00 Pulse Ox 98 01/19/20 18:00 Testing Laboratory Results 01/19/20 13:32 01/19/20 13:32 Urine Color Yellow 01/19/20 13:32 Urine Appearance Clear (Clear) 01/19/20 13:32 Urine pH 7.0 (4.5-7.5) 01/19/20 13:32 Ur Specific [place] 1.014 (1.000-1.030) 01/19/20 13:32 Urine Protein Negative (Negative) 01/19/20 13:32 Urine Glucose (UA) Negative (Negative) 01/19/20 13:32 Urine Ketones Negative (Negative) 01/19/20 13:32 Urine Nitrite Negative (Negative) 01/19/20 13:32 Ur Leukocyte Esterase Negative (Negative) 01/19/20 13:32 01/19/20 Unknown POC Ur Test NEG Electrocardiogram Date: 01/19/20 Findings: + NSR @ (82) Chest X-Ray Date: 01/19/20 [place] CHEST CLINICAL HISTORY: Epigastric abdominal pain FINDINGS: An AP, portable, upright chest radiograph is compared to study dated 11/13/2014. The cardiomediastinal silhouette is unremarkable. There is mild bibasilar atelectasis. The lungs and pleural spaces are otherwise clear. No pneumothorax is seen. The bony thorax is grossly intact. IMPRESSION: No active disease in the chest. ACT 112: Negative or not required by law. Electronically signed by: Sourav Vasquez M.D. 01/19/2020 12:56 PM Dictated: 01/19/20 1256Transcribed: 01/19/[address] ANGIOGRAM OF THE CHEST; CT SCAN OF THE ABDOMEN AND PELVIS WITH IV CONTRAST CLINICAL HISTORY: Epigastric abdominal pain. Elevated d-dimer. COMPARISON STUDY: Chest x-ray dated 01/19/2020. CT scan of the chest, abdomen, and pelvis dated 11/13/2014. TECHNIQUE: Following the IV administration of 119 of Optiray 320, CT angiogram of the chest is performed from the upper abdomen to the thoracic inlet utilizing the pulmonary embolus protocol. Images are reviewed in the axial, sagittal, coronal planes. 3-D MIPS images are created and assessed. Subsequently, CT scan of the abdomen and pelvis was performed from the lung bases to the proximal femora. Images are reviewed in the axial, sagittal, and coronal planes. IV contrast was administered without complication. A dose lowering technique was utilized adhering to the principles of ALARA. CT DOSE: 2282.31 mGy.cm FINDINGS: CHEST: Thyroid: Imaged portions of the thyroid gland are normal in size and attenuation. Thoracic aorta: The thoracic aorta is normal in caliber and demonstrates adonay dard 3-vessel arch anatomy. No dissection is seen. Pulmonary vasculature: The pulmonary trunk is normal in caliber. There are no filling defects identified in the main, lobar, or segmental pulmonary arteries to indicate pulmonary embolus. Heart: The heart is normal in size and configuration, and without pericardial effusion. Lungs and pleural spaces: The lungs and pleural spaces are clear. Mediastinum: There is no mediastinal lymphadenopathy. Meghan: Clear. Axillae: There is no axillary lymphadenopathy. Bony thorax: No lytic or blastic lesions are identified. ABDOMEN AND PELVIS: Liver: The contrast-enhanced liver is mildly enlarged measuring 19.1 cm in length. The liver demonstrates diminished attenuation consistent with hepatic steatosis. There is no intrahepatic or ductal dilatation. The hepatic veins and portal veins are patent. Gallbladder: There are calcified gallstones, with a gallstone seen in the region of the gallbladder neck on image #104. The gallbladder is distended. The gallbladder wall is thickened and there is pericholecystic inflammation. Spleen: Normal in size and attenuation. Pancreas: Unremarkable. Adrenal glands: Unremarkable. Kidneys: The contrast enhanced kidneys are normal in size and without hydronephrosis. The kidneys enhance symmetrically. Abdominal vasculature: The abdominal aorta is normal in course and caliber noting mild atherosclerotic calcification. Stomach and bowel: There is a small hiatal hernia. No bowel obstruction is seen. There is mild to moderate diverticulosis of the left colon without CT evidence of acute diverticulitis. The appendix is not identified. Peritoneum: There is no intraperitoneal free air or abdominal ascites. There is a fat-containing umbilical hernia. Lymphadenopathy: None. Pelvic viscera: The bladder, uterus, and adnexa are normal as imaged. Skeletal structures: No lytic or blastic lesions are seen. There is mild lumbosacral spondylosis. Sclerotic change is noted in the pubic symphysis. IMPRESSION: 1. Cholelithiasis with acute cholecystitis. 2. There is no evidence of pulmonary embolus in the main, lobar, or segmental pulmonary arteries. 3. The lungs are clear. 4. The liver is mildly enlarged and steatotic. 5. Colonic diverticulosis without CT evidence of acute diverticulitis. ACT 112: Negative or not required by law. Electronically signed by: Sourav Vasquez M.D. 01/19/2020 3:19 PM Dictated: 01/19/20 1511Transcribed: 01/19/20 1511
[2020-01-19] MEDS ORDERED: DEXAMETHASONE SOD INJ 4 MG/ML VIAL ONE (19:47)
[2020-01-19] MEDS ORDERED: ONDANSETRON INJ 2 MG/ML 2 ML VIAL ONE (19:52)
[2020-01-19] MEDS ORDERED: GLYCOPYRROLATE 0.2 MG/ML VIAL ONE (19:52)
[2020-01-19] MEDS ORDERED: NEOSTIGMINE METHYLSULFATE 5 MG/5 ML SYR ONE (19:52)
[2020-01-19] MEDS ORDERED: cefOXitin 2,000 MG in DEXTROSE 5% 50 ML IV STA (20:13)
[2020-01-19] MEDS ORDERED: FLOSEAL HEMOSTATIC MATRIX 10ML TOP ONE (20:47)
--- NOTE | 2020-01-19 21:25 | Post Operative Brief Note ---
Immediate Post Op Note v1 Date of Surgery January 19, 2020 Pre & Post Diagnosis Operation Date: 01/19/20 07:00 Pre-Op Diagnosis: acute calculous cholecystitis Post-Op Diagnosis: acute calculous cholecystitis I identified the patient and participated in the time-out.: Yes Procedure Operation Date: 01/19/20 07:00 Actual Procedures p Laparoscopic Cholecystectomy(Not Applicable) - Jose Luis Hamilton MD Surgeon Jose Luis Hamilton MD Labor Relations Analyst None Estimated Blood Loss 10 Findings Consistent with Post-Op Diagnosis
[2020-01-19] MEDS ORDERED: LABETALOL HCL IV 5 MG/ML 20ML IV ONE (21:28)
[2020-01-19] MEDS ORDERED: LABETALOL HCL IV 5 MG/ML 20ML IV STA (21:29)
[2020-01-19] MEDS: fentaNYL citrate 100 MCG/2 ML VIAL IV PRN ×4 (21:42→22:08)
--- NOTE | 2020-01-19 22:05 | Anesthesiology Progress Note ---
Date of Service January 19, 2020 Anesthesia Post Procedure Vital Signs Vital Signs: Temp Pulse Pulse Resp BP BP Pulse Ox 01/19/20 21:55 72 14 147/101 H 97 01/19/20 21:45 76 14 134/103 H 96 01/19/20 21:35 72 16 141/96 H 97 01/19/20 21:25 36.2 C L 77 14 177/100 H 97 01/19/20 18:00 83 24 185/92 H 98 01/19/20 17:00 88 20 184/108 H 97 01/19/20 16:00 90 19 186/85 H 98 01/19/20 15:23 81 21 183/118 H 98 01/19/20 15:19 201/96 H 01/19/20 15:17 92 H 22 183/118 H 98 01/19/20 15:14 87 24 201/96 H 99 01/19/20 14:30 80 24 98 01/19/20 14:00 77 24 187/116 H 99 01/19/20 13:31 82 19 183/116 H 100 01/19/20 11:49 36.7 C 87 18 180/85 H 99 Pain Intensity Abdomen: Pain Intensity: 4 Transfer of Care Handoff Completed per policy Notes Mental Status: alert / awake / arousable Patient Amnestic to Procedure: Yes Nausea / Vomiting: adequately controlled Pain: adequately controlled Airway Patency, RR, SpO2: stable & adequate BP & HR: stable & adequate and see Notes below Hydration State: stable & adequate Anesthetic Complications: no major complications apparent and Pt Satisfied with anesthetic care Notes: The patient was hypertensive preoperatively. Her BP was labile in the OR and was again hypertensive in recovery. She was treated with labetalol 10 mg IV in recovery and her BP is now lower than her baseline. Her other vital signs are stable. She is awake and comfortable.
[2020-01-19] MEDS ORDERED: MoRPHine SULFATE 4 MG/ML 1 ML CARP\\VIAL IV PRN (22:37)
[2020-01-19] MEDS ORDERED: SODIUM CHLORIDE 0.9% 1000ML 1,000 ML IV SCH (22:37)
--- NOTE | 2020-01-19 23:36 | Operative Report (OR) ---
DATE OF OPERATION: 01/19/2020 PREOPERATIVE DIAGNOSES: Acute cholecystitis, cholelithiasis. POSTOPERATIVE DIAGNOSES: Acute cholecystitis, cholelithiasis. PROCEDURE: Laparoscopic cholecystectomy. SURGEON: Jose Luis Hamilton MD. FINDINGS: The gallbladder wall was markedly thickened. There was a lot of edema around it. There were a lot of adhesions of the omentum to the gallbladder wall along its entire length. The cystic duct was not dilated. There were a lot of dilated lymphatics. The liver was of normal size and contour. The visible bowel appeared normal. TECHNIQUE: The patient was given a general anesthetic and the area was prepped and draped in the usual sterile fashion. The site for the subumbilical incision was chosen. The skin and subcutaneous tissue were anesthetized with 0.5% Marcaine. Skin incision was made and was carried down through the subcutaneous tissue to the fascia which was grasped with 2 Raulito clamps and incised between. The peritoneum was identified, incised, and the introducer was placed bluntly. The abdomen was then insufflated to a pressure of 15 mmHg with carbon dioxide. The site for the upper midline, midclavicular and anterior axillary introducers were chosen and the skin and subcutaneous tissue in layers were anesthetized with 0.5% Marcaine. Skin incisions were made and the introducers were placed under direct vision. I could not grasp the gallbladder and so the drainage needle was passed under direct vision and inserted into the fundus. A large amount of yellow bile was drained. The gallbladder could then be grasped and elevated. The adhesions of the omentum to the gallbladder and the fundus area were thick. It required cautery to divide and separate the structures. I then was able to peel the omentum away down to the infundibulum. I then was able to grasp the infundibulum and elevate it and opened the peritoneum. There was a lot of edema around these tissues. The infundibulum and neck of the gallbladder were identified. The peritoneum and adhesions were taken down using blunt cautery dissection where appropriate. The gallbladder was dissected away from the liver on the lateral side allowing for better mobility. I then worked over the anterior surface of the gallbladder, then opened the triangle of Calot. The cystic duct lymph node was seen adherent to the neck of the gallbladder. I dissected it free from its distal tissues, keeping the lymph node with the gallbladder. That allowed me access to the peritoneal attachments of the neck or the infundibulum of the gallbladder on the medial side and those were divided allowing for better mobility. Further thickened lymphatics and thickened connective tissue were peeled away from the neck of the gallbladder and the cystic duct was identified. Behind the cystic duct lymph node, the cystic artery was also identified. The cystic duct was skeletonized medially and laterally. I then dissected some of the gallbladder away from the liver on the lateral medial side allowed me to create an adequate window. The cystic artery was identified, but it was left in place for the time. Two clips were placed on the proximal cystic duct, one near the gallbladder and it was divided. That allowed me to elevate the neck of the gallbladder and then isolate the cystic artery, clipped it twice proximally and once near the gallbladder and divided. The gallbladder was then peeled off the liver bed. There was not a good plane between the gallbladder and the liver. It required meticulous dissection in some areas millimeter by millimeter. There was a second tubular structure extending up to the mid portion of the body of the gallbladder from the liver. This was clamped near the liver and near the gallbladder and divided. It appeared to be a posterior branch of the artery. Further dissection of the gallbladder off the liver was performed and it was completely . I then placed the gallbladder into an Endobag and brought out through the upper midline incision where I had to stretch the layers in order to extract the gallbladder within the bag, and that was accomplished. That introducer was replaced and the liver edge was elevated. The subdiaphragmatic and subhepatic spaces were irrigated. There was some bile leakage from the hole created by the needle suction device. The irrigation was placed and removed sequentially until the return was clear. The gallbladder bed of the liver was inspected. There was one area of bleeding that was easily controlled with cautery. Further irrigation was performed. There were no further areas of bleeding. The previously placed clips were inspected and were intact. Due to the acute nature of the gallbladder and the raw surface of the gallbladder bed, it was filled with FloSeal. The gas was allowed to escape and the introducers were removed. The fascia of the umbilical introducer site and the upper midline introducer site were closed with interrupted 0 Vicryl and the skin of all the incisions was closed with 4-0 Monocryl in either an interrupted or running subcuticular fashion. The skin was further anesthetized with 0.5% Marcaine. The skin was cleansed, dried, benzoin placed, Steri-Strips applied. Estimated blood loss was 10 mL. Sponge, needle and instrument counts were correct prior to closure. The patient tolerated the surgical procedure without complication and was transferred to recovery. I attest to the content of the Intraoperative Record and any orders documented therein. Any exception s are noted below.
[2020-01-20] MEDS: cefOXitin 2,000 MG in DEXTROSE 5% 50 ML IV SCH ×2 (01:50→07:39)
[2020-01-20] MEDS: oxyCODONE/ACETAMINOPHEN 5mg/325mg TAB PO PRN ×2 (01:50→11:04)
[2020-01-20] MEDS: ALBUTEROL HFA 8 GM INHALER INH PRN ×2 (02:01→08:18)
[2020-01-20] MEDS ORDERED: FLUTICASONE/VILANTEROL 100/25MCG 14 PUFFS/INHALER INH SCH (09:00)
[2020-01-20] MEDS ORDERED: FUROSEMIDE 20 MG TAB PO SCH (09:00)
[2020-01-20] MEDS ORDERED: MONTELUKAST SODIUM 10 MG TABLET PO SCH (09:00)
[2020-01-20] MEDS ORDERED: PANTOprazole 40 MG TAB PO SCH (09:00)
--- NOTE | 2020-01-20 10:13 | Surgery Progress Note ---
Date of Service January 20, 2020 Assessment & Plan (1) Acute calculous cholecystitis: Postoperative day #1 status post laparoscopic cholecystectomy Doing well Can discharge to home Discussed postoperative activity restrictions Discussed follow-up Admission and Anticipated Discharge Date Admission Date: January 19, 2020 Subjective Postoperative day #1 status post laparoscopic cholecystectomy Patient feels well Has only mild discomfort Tolerated a regular diet this morning for breakfast without nausea or vomiting Had a bowel movement this morning and is passing flatus Physical Exam Gastrointestinal (Abdomen): Inspection/Auscultation: normal bowel sounds and + abdominal surgical incision (All are clean, dry and intact); abdomen not distended Percussion/Palpation: + abdomen tender (Minimal incisional) and abdomen soft Results & Data ([facility]) Vital Signs (Past 12 Hours) Vital Signs Temp Pulse Pulse Resp BP Pulse Ox 01/20/20 08:20 113 H 20 93 01/20/20 07:04 37.3 C 106 H 20 178/79 H 95 01/20/20 05:35 37.4 C 101 H 20 153/85 H 94 01/20/20 03:20 37.1 C 101 H 20 156/95 H 95 01/20/20 02:05 109 H 22 94 01/20/20 01:43 37.2 C 93 H 22 159/97 H 97 01/20/20 00:35 37.3 C 98 H 20 170/106 H 95 01/20/20 00:07 103 H 24 178/96 H 94 01/19/20 23:55 100 H 28 H 95 01/19/20 23:39 37.2 C 81 18 168/105 H 96 01/19/20 23:29 178/105 H 01/19/20 23:08 36.7 C 91 H 18 161/109 H 96 01/19/20 22:48 90 156/97 H 95 01/19/20 22:35 36.5 C 80 16 153/100 H 94 01/19/20 22:20 36.3 C L 85 16 149/89 H 95
--- NOTE | 2020-01-20 10:22 | Discharge Summary ---
Date of Service January 20, 2020 Admission HPI Per Admitting Provider This is a 49-year-old female who presented to the emergency room with a complaint of right upper quadrant pain. The patient states that 2 days ago in the evening she developed some discomfort. It lasted for about 2 to 3 hours and then resolved. Last night at 4 PM she again developed discomfort except this time it was much more sharp. It was also located in the right upper quadrant. It does radiate around to her back. It does not radiate to the left or into the lower abdomen. Some of the discomfort does go towards the umbilicus. It is sharp and unrelenting at the present time. She had nausea and had 2 episodes of vomiting without hematemesis. She does have a history of reflux however the symptoms are completely different. She has recently had some diarrhea as well. That is different for her and that she normally has some degree of constipation. She had no melena or hematochezia. She does not think she had fever. She had one other episode similar to the 1 2 days ago that was self-limited that was about a week ago but she was then well until the day before yesterday. She has no dysuria or hematuria. She has never had jaundice, hepatitis or pancreatitis. Admission Exam Per Admitting Provider Constitutional: + obese; no acute distress Respiratory: normal respiratory effort, lungs clear to auscultation Cardiovascular: Rate/Rhythm: regular rate and regular rhythm Gastrointestinal (Abdomen): Inspection/Auscultation: normal bowel sounds; abdomen not distended Percussion/Palpation: + abdomen tender (Right upper quadrant to moderate palpation) and abdomen soft Skin: no rashes, warm and dry Lymphatic: no cervical lymphadenopathy Principal Diagnosis Acute cholecystitis Discharge Exam Constitutional no acute distress Gastrointestinal (Abdomen) Inspection/Auscultation: normal bowel sounds; abdomen not distended Percussion/Palpation: + abdomen tender and abdomen soft Discharge Data Allergies Allergy/AdvReac Type Severity Reaction Status Date / Time Influenza Virus Vaccines Allergy Severe SEVERE Verified 09/26/17 19:15 REACTION. HOSPITALIZED bee venom protein (honey bee) Allergy Unknown . Unverified 09/26/17 19:15 Consultations 01/19/20 15:41 ED Decision to Admit Stat Procedures Performed Operation Date: 01/19/20 07:00 Actual Procedures p Laparoscopic Cholecystectomy(Not Applicable) - Jose Luis Hamilton MD Ordered Studies 01/19/20 12:10 CT abd pelvis IV con only Stat 01/19/20 14:17 CT angio chest PE protocol Stat Hospital Course (1) Acute calculous cholecystitis: The patient was taken from the emergency room to the operating room where laparoscopic cholecystectomy was performed. Findings at the time of the procedure included thickened gallbladder wall. There were small stones. There is edema surrounding the tissues. There were adhesions to the gallbladder. This is all consistent with acute cholecystitis. The procedure was uncomplicated. On the morning of postoperative day 1 the patient was feeling well. She had mild pain. She had tolerated a regular diet was ambulating. She had a bowel movement. She was discharged to home on postoperative day #1. Discharge instructions were discussed. She can follow-up in 2 weeks. Total Time Total Time Spent Total Time Spent (In Minutes): 15 Total Time Includes: Examination of the Patient and Discharge Planning Discharge Plan Discharge Items Patient Disposition: Home - Self-Care Reason For Visit: ACUTE CHOLECYSTITIS Discharge Diagnosis: Same Activity: As commented below Non-emergency contact: Surgeon Call non-emergency contact if: your temperature is above 101.5, your wound has increased redness and your wound pain has increased Follow-up/Referrals: Radha Bardales MD [Primary Care Provider] - Diet: Regular Addtl Attending Provider Instructions: Post-Surgical ~Discharge Instructions Activity Recommendations: - lifting limitation: (10 pounds for 2 weeks), - exercise/sex/sports limit: (nonstrenuous for 2 weeks), - driving or machine use limit: (none for 1 week), - Shower/bathe limit: (may shower beginning tomorrow) Diet: - Resume previous diet SPECIAL CARE INSTRUCTIONS: - May shower in 24 hours. Let water run over area and pat dry. - Leave steri strips on for one week. - Call the surgeon's office with any questions or concerns - - (ex. temperature higher than 101 degrees F, excessive bleeding or pain). MEDICATIONS: - Resume previous medications unless instructed otherwise by your surgeon. - Ibuprofen 600 mg every 6 hours with food - Percocet 1 every 4 hours, as needed for pain FOLLOW UP VISIT: - If not already scheduled, please call the office to schedule a two week follow-up appointment. Office number Pending Studies at Discharge: Yes Studies:: Pathology Stand-Alone Forms: [facility], Smoking Cessation Medications and DC Order Prescriptions: New oxycodone-acetaminophen [Percocet] 5-325 mg Tablet 1 tab PO Q4H PRN (Reason: pain) Qty: 5 RF: 0 Continued fluticasone propion-salmeterol [Wixela Inhub] 250-50 mcg/dose blister with device 1 ea INHALATION DAILY RF: 0 omeprazole 20 mg capsule,delayed release(DR/EC) 20 mg PO DAILY RF: 0 montelukast 10 mg tablet 10 mg PO DAILY RF: 0 furosemide 20 mg tablet 20 mg PO DAILY RF: 0 albuterol sulfate 90 mcg/actuation HFA aerosol inhaler 1 inh INHALATION DIRECTED PRN (Reason: Shortness Of Breath) RF: 0 Discharge Orders: Discharge Order (Routine); Ordered 01/20/20 Ordered By: Jose Luis Hamilton Admission Data Admit Date/Time: 01/19/20 21:49 Attending Provider: Jose Luis Hamilton Admit Provider: Jose Luis Hamilton Primary Care Provider: Radha Bardales Other Providers: Jose Luis Hamilton
== END 2020-01-20 11:33 | disposition home or self-care (01) ==
LOC: ED 11:48 → OR 18:06 → 3E 18:06

== ENCOUNTER 2024-12-20 15:26 | Observation (INO) ==
--- NOTE | 2024-12-20 16:36 | Emergency Department Note ---
Impression & Plan Acute asthma exacerbation, Stridor, Acute dyspnea, Acute viral bronchiolitis, Rhinovirus infection, Enterovirus infection ED Provider Note HISTORY OF PRESENT ILLNESS: Patient is a 54-year-old female presenting with stridor. Patient reports she started having difficulties breathing yesterday. She presented to an emergency department in [facility] and stated that they tried getting an IV multiple times with little success. She states that she did not have any nasal swabs or chest x-ray performed at that time. She was told it was her upper airway and was given a shot of steroid and told to follow-up with ear nose and throat. She states that she followed up with her primary care provider this morning given her worsening symptoms. Her primary care provider referred her to the emergency department due to her audible stridor. Patient reports she has used her home inhaler for her asthma multiple times with little relief in her symptoms. Denies any chest pain. Denies any PE history, but does report an isolated DVT history in her right lower extremity about 20 years ago. She is not currently on any anticoagulation or antiplatelet therapy. She denies any recent fevers or chills. Denies any recent travel or recent sick contact exposures. Denies any nausea or vomiting. ROS: as above PHYSICAL EXAM: Constitutional: Patient appears in moderate distress. Morbidly obese HENT: Head: Normocephalic and atraumatic. Eyes: EOMI, PERRL Mouth/Throat: Mucous membranes moist. Uvula midline. No tonsillar hypertrophy or exudate. Neck: Trachea midline. Neck supple. Cardiovascular: Tachycardic with regular rhythm. No murmurs, rubs or gallops. Intact distal pulses. Pulmonary/Chest: No respiratory distress. Breath sounds clear and equal bilaterally. No wheezes or rales. Tachypneic. Conversationally dyspneic. Patient with audible upper airway stridor. Abdominal: Abdomen soft, no tenderness, rebound or guarding. Musculoskeletal: No edema, tenderness or deformity noted. Skin: Warm and dry. No rash, erythema, pallor or cyanosis Psychiatric: Appropriate mood and affect for situation. Neurological: Alert and keenly responsive. CN II-XII grossly intact, moving all extremities equally and fully. MDM: - Vitals signs showed tachypnea, tachycardia and hypertension. - History obtained via patient. History as above. - Chronic conditions affecting care: Morbid obesity; asthma; HTN - Differential diagnoses include, but are not limited to: Congestive heart failure; acute coronary syndrome; COPD/asthma exacerbation; pulmonary edema; pulmonary embolism; pneumonia; pneumothorax; viral syndrome - Order placed for continuous cardiac monitoring. At this time, monitor showed rate of 100 bpm with normal sinus rhythm, per my interpretation. -Patient was brought back to an examination room immediately from triage. She has audible stridor on assessment and I have verbally asked the nursing staff to get racemic epinephrine at bedside and administered to the patient. - External medical records reviewed. - EKG image interpreted by myself showed normal sinus rhythm. Rate 92 bpm. QT 334. No acute ischemic changes. - Laboratory workup interpreted by myself showed normal WBC; stable electrolytes; stable electrolytes; normal troponin - Viral respiratory panel positive for rhinovirus/enterovirus infections. - VBG relatively normal - CXR image reviewed interpreted by myself as no for pneumonia, per my interpretation. Radiology notes peribronchial cuffing suggestive of bronchiolitis. - On reassessment at 18:20, patient has diffuse expiratory wheezes in her lower lung villalobos. She is still having some audible stridor, but the stridor has improved slightly. 60 mg of IV dexamethasone and 20 mg IV Pepcid ordered. Another dose of racemic epinephrine was also ordered and an hour-long DuoNeb treatment was ordered. Did discuss results with the patient thus far. Given she is still having significant symptoms, plan to admit to hospitalist service. 1 g of IV magnesium was ordered for further smooth muscle relaxation and to see if that can improve her respiratory symptoms. - Discussion was had with housing case manager about patient's case and need for admission - Hospitalist consulted for admission - Patient admitted to [facility] hospitalist service for further evaluation and management. I have personally spent 34 minutes of critical care time in the direct management of this patient. This includes bedside care, interpretation of diagnostic studies, and testing, discussion with consultants, patient, and family members, and other required patient management activities. This 34 minutes is in excess of all separately billable procedures. ASSESSMENT AND PLAN: Diagnosis: acute asthma exacerbation; stridor; acute dyspnea; acute viral bronchiolitis; rhinovirus infection; enterovirus infection Plan: admit Past Med/Surg History Problem List (Updated 12/20/24 @ 18:26 by Kimberlee Mcneal MD) Enterovirus infection (Acute) Rhinovirus infection (Acute) Acute viral bronchiolitis (Acute) Acute dyspnea (Acute) Stridor (Acute) Acute asthma exacerbation (Acute) Encounter for pre-operative examination Nausea, vomiting and diarrhea (Acute) Encounter for pre-operative examination Status post section (Acute 12/18/12) Pre-eclampsia (Acute 12/18/12) Chest pain (Acute) Morbid obesity BMI 44.5 History of delivery X 3 Irritable bowel syndrome with constipation Osteoarthritis GERD (gastroesophageal reflux disease) Medical History Sleep apnea cpap History of COVID-19 diagnosed 01/2020--mild symptoms, no symptoms now Hypertension History of anesthesia reaction per pt her "heart stopped when I had my tonsils out"--has had surgeries since without any issues Asthma inhaler daily and prn Surgical History History of tooth extraction History of cholecystectomy History of colonoscopy last 10/2020 @ [facility] H/O tubal ligation History of tonsillectomy Family History Other No family history of adverse response to anesthesia Social History Smoking Status: Never smoker Second Hand Exposure: No; Do You Dip or Chew Tobacco: No; Hx Alcohol Use: No Hx Substance Use: No Preferred Language: Wolof Communication Ability: Effective Discharge Specialist Required: No Beliefs That Will Affect Care: None marital status: Current Living Situation: Spouse and Family Current Living Situation Comment: Lives with and 9yr old daughter current occupational status: employed Feels Safe at Home: Yes Assistive Devices: CPAP and Glasses Allergies Allergies Allergy/AdvReac Type Severity Reaction Status Date / Time bee venom protein (honey bee) Allergy Severe Anaphylaxis Verified 12/20/24 18:28 Influenza Virus Vaccines Allergy Severe SEVERE Verified 12/20/24 18:28 REACTION. HOSPITALIZED--ICU X 3 DAYS lavender (Lavandula Allergy Severe Wheezing Verified 12/20/24 18:28 angustifolia) pneumococcal vaccine Allergy Severe SEVERE Verified 12/20/24 18:28 REACTION. HOSPITALIZED--ICU X 3 DAYS nickel Allergy Mild itchy rash Verified 12/20/24 18:28 Home Meds Home Medications Medication Instructions Recorded Confirmed albuterol sulfate 90 mcg/actuation 2 inh inhalation Q4 PRN Wheezing 01/19/20 12/20/24 aerosol inhaler montelukast 10 mg tablet 10 mg PO HS 01/19/20 12/20/24 omeprazole 20 mg capsule,delayed 20 mg PO QAM 01/19/20 12/20/24 release epinephrine 0.3 mg/0.3 mL 0.3 mg IM UD PRN Allergic Reaction 07/30/20 12/20/24 injection, auto-injector gabapentin 300 mg capsule 300 mg PO BID 05/02/24 12/20/24 albuterol sulfate 2.5 mg/3 mL 2.5 mg inhalation Q4H PRN 12/20/24 12/20/24 (0.083 %) solution for nebulization Shortness Of Breath Or Wheezing ascorbic acid (vitamin C) 500 mg 500 mg PO DAILY 12/20/24 12/20/24 tablet (Vitamin C) cetirizine 10 mg tablet (Zyrtec) 10 mg PO DAILY 12/20/24 12/20/24 cyanocobalamin (vitamin B-12) 500 500 mcg PO DAILY 12/20/24 12/20/24 mcg tablet (Vitamin B-12) ergocalciferol (vitamin D2) 1,250 1,250 mcg PO 3XWK 12/20/24 12/20/24 mcg (50,000 unit) capsule (Vitamin D2) fluticasone propionate 230 2 puff inhalation BID 12/20/24 12/20/24 mcg-salmeterol 21 mcg/actuation HFA inhaler (Advair HFA) furosemide 80 mg tablet 80 mg PO BID 12/20/24 12/20/24 ibuprofen 200 mg tablet 800 mg PO BID 12/20/24 12/20/24 milk thistle seed extract 250 mg 250 mg PO DAILY 12/20/24 12/20/24 capsule pediatric multivitamin 1 tab PO DAILY 12/20/24 12/20/24 tetrahydrozoline 0.05 % eye drops 1 drp OPB DIRECTED PRN NEEDED 12/20/24 12/20/24 (Visine) Results & Data (ED) Vital Signs Vital Signs - 24 hr 12/20/24 16:15 12/20/24 16:31 12/20/24 16:59 Temperature 36.6 C Temperature Source Temporal Artery Scan Pulse Rate 99 H Pulse Rate [Apical] 91 H Respiratory Rate 36 H 21 Respiratory Effort / Characteristics Blood Pressure 191/111 H Blood Pressure [Left Arm] 155/97 H Blood Pressure Mean 137 Blood Pressure Mean [Left Arm] 116 Pulse Oximetry 95 95 95 Oxygen Delivery Method Room Air Other Room Air Oxygen Flow Rate 8 Sepsis New/Unexplained Change in Mental Status No Sepsis Action Taken by Nursing No Action Required 12/20/24 17:55 12/20/24 18:30 Temperature Temperature Source Pulse Rate 96 H Pulse Rate [Apical] 93 H Respiratory Rate 24 Respiratory Effort / Characteristics Labored Blood Pressure Blood Pressure [Left Arm] 151/85 H Blood Pressure Mean Blood Pressure Mean [Left Arm] 107 Pulse Oximetry 98 Oxygen Delivery Method Room Air Oxygen Flow Rate Sepsis New/Unexplained Change in Mental Status Sepsis Action Taken by Nursing Laboratory Data 12/20/24 16:40 12/20/24 16:40 Lab Results 12/20/24 12/20/24 Range/Units 16:40 Unknown WBC 8.18 (4.8-10.8) K/ul RBC 5.24 (4.20-5.40) M/uL Hgb 15.0 (12.0-16.0) g/dl Hct 46.3 (37.0-47.0) % MCV 88.4 (80.0-100.0) fL MCH 28.6 (25.0-34.0) pg MCHC 32.4 (32.0-36.0) g/dL RDW Std Deviation 43.6 (36.4-46.3) fL RDW Coeff of Kimberly 13.5 (11.5-14.5) % Plt Count 321 (130-400) K/uL MPV 9.2 L (9.4-12.4) fL Immature Gran % (Auto) 0.6 % Neut % (Auto) 61.5 % Lymph % (Auto) 24.1 % [place] % (Auto) 9.8 % Eos % (Auto) 3.1 % Baso % (Auto) 0.9 % Neut # (Auto) 5.04 (1.40-6.50) K/uL Lymph # (Auto) 1.97 (1.20-3.40) K/uL [place] # (Auto) 0.80 H (0.11-0.59) K/uL Eos # (Auto) 0.25 (0.00-0.50) K/uL Baso # (Auto) 0.07 (0.00-0.20) K/uL Immature Gran # (Auto) 0.05 (0.01-0.20) K/uL PT 9.8 (9.0-12.0) Seconds INR 0.9 (0.9-1.1) VBG pH 7.42 H (7.36-7.41) VBG pCO2 49 (38-50) mmHg VBG pO2 36 mmHg VBG HCO3 32 mmol/L VBG O2 Saturation < 60.0 % VBG Base Excess 5.9 mEq/L Sodium 142 (136-145) mmol/L Potassium 3.7 (3.5-5.1) mmol/L Chloride 105 (98-107) mmol/L Carbon Dioxide 28 (21-32) mmol/L Anion Gap 9 (3-11) BUN 14 (6-23) mg/dl Creatinine 0.77 (0.6-1.2) mg/dl Est Cr Clr Drug Dosing 105.9 ml/min eGFR 91.61 BUN/Creatinine Ratio 18.2 (10-20) Glucose 100 H (70-99(Fasting)) mg/dl Calcium 8.8 (8.6-10.3) mg/dl Magnesium 1.9 (1.7-2.4) mg/dl Total Bilirubin 0.3 (0.2-1.0) mg/dl AST 22 (13-39) U/L ALT 19 (7-52) U/L Alkaline Phosphatase 124 H (34-104) U/L Troponin I High Sens 4.6 (0-14) pg/ml Total Protein 7.4 (6.0-8.3) gm/dl Albumin 3.9 (3.4-5.0) gm/dl Globulin 3.5 (2.5-4.0) gm/dl Albumin/Globulin Ratio 1.1 (0.9-2) Adenovirus (PCR) Not Detected (NotDetected) B. pertussis DNA (PCR) Not Detected (NotDetected) B.parapertussis DNA PCR Not Detected (NotDetected) C. pneumoniae DNA (PCR) Not Detected (NotDetected) Coronavirus OC43 (PCR) Not Detected (NotDetected) Coronavirus HKU1 (PCR) Not Detected (NotDetected) Coronavirus 229E (PCR) Not Detected (NotDetected) SARS-CoV-2 (PCR) Not Detected (NotDetected) Coronavirus NL63 (PCR) Not Detected (NotDetected) Human Metapneumovir PCR Not Detected (NotDetected) Influenza Type A (PCR) Not Detected (NotDetected) Influenza Type B (PCR) Not Detected (NotDetected) M. pneumoniae (PCR) Not Detected (NotDetected) Parainfluenza 1 (PCR) Not Detected (NotDetected) Parainfluenza 2 (PCR) Not Detected (NotDetected) Parainfluenza 3 (PCR) Not Detected (NotDetected) Parainfluenza 4 (PCR) Not Detected (NotDetected) RSV (PCR) Not Detected (NotDetected) Entero/Rhino (PCR) DETECTED A (NotDetected) Administered Medications Discontinued Medications Albuterol (Albut/Ipratrop 3mg/0.5mg Neb 3 Ml Vial) 3 ml NEB NOW STA; Protocol Stop: 12/20/24 16:48 Last Admin: 12/20/24 17:05 Dose: 3 ml Documented By: malachi Albuterol (Albut/Ipratrop 3mg/0.5mg Neb 3 Ml Vial) 12 ml NEB ONE ONE; Protocol Stop: 12/20/24 18:23 Last Admin: 12/20/24 19:04 Dose: 12 ml Documented By: NJ Epinephrine (Racepinephrine 2.25% Nebu Soln 0.5 Ml Vial) Confirm Administered Dose 0.5 ml .ROUTE .STK-MED ONE Stop: 12/20/24 16:26 Last Admin: 12/20/24 17:28 Dose: Not Given Documented By: cad Epinephrine (Racepinephrine 2.25% Nebu Soln 0.5 Ml Vial) 0.5 ml NEB NOW STA Stop: 12/20/24 17:13 Last Admin: 12/20/24 17:33 Dose: 0.5 ml Documented By: cad Epinephrine (Racepinephrine 2.25% Nebu Soln 0.5 Ml Vial) 0.5 ml NEB NOW STA Stop: 12/20/24 18:23 Last Admin: 12/20/24 18:49 Dose: 0.5 ml Documented By: malachi Famotidine (Pepcid 20mg Iv Push) 20 mg in 5 mls @ 2.5 mls/min IV NOW STA Stop: 12/20/24 18:14 Last Admin: 12/20/24 18:35 Dose: 2.5 mls/min Documented By: malachi Magnesium Sulfate/Dextrose (Magnesium Sulfate / D5w) 1 gm in 100 mls @ 100 mls/hr IV NOW STA Stop: 12/20/24 19:22 Last Admin: 12/20/24 18:33 Dose: 100 mls/hr Documented By: malachi Methylprednisolone (Methylprednisolone 125 Mg/2 Ml Vial) 60 mg IV NOW STA Stop: 12/20/24 18:14 Last Admin: 12/20/24 18:33 Dose: 60 mg Documented By: malachi Imaging Data Radiologist's Impression: Chest X-Ray 12/20/24 16:31 EXAM: Portable AP chest radiograph TECHNIQUE: AP portable radiograph of the chest was obtained. INDICATION: Shortness of breath Comparison: Chest radiograph May 02, 2024 FINDINGS: LINES and TUBES: None. CARDIOVASCULAR: Cardiac silhouette is stably mildly enlarged in size. LUNGS/PLEURA: No focal consolidation identified. Peribronchial cuffing. Mild pulmonary vascular congestion is similar to appearance. Apparent densities project over the left lung base. No significant pleural fluid. No discernible pneumothorax. OSSEOUS/OTHER: No displaced acute osseous process identified. IMPRESSION: Peribronchial cuffing that may suggest bronchiolitis. Apparent densities project over the left lung base. This may be due to the overlying soft tissues however please clinically correlate with physical examination to exclude pneumonia in this area Electronically signed by Jhonny Cooper 12-20-2024 5:29 PM Discharge Plan Visit Data Chief Complaint: Respiratory Problems Stated Complaint: WHEEZING, SOB ED Provider: Kimberlee Mcneal Discharge Problem: Acute asthma exacerbation, Stridor, Acute dyspnea, Acute viral bronchiolitis, Rhinovirus infection, Enterovirus infection Patient Disposition: Admitted As Inpatient Condition: Fair Forms Stand Alone Forms: [facility] Prescriptions Prescriptions: No Action omeprazole 20 mg capsule,delayed release(DR/EC) 20 mg PO QAM montelukast 10 mg tablet 10 mg PO HS albuterol sulfate 90 mcg/actuation HFA aerosol inhaler 2 inh INHALATION Q4 PRN (Reason: Wheezing) epinephrine 0.3 mg/0.3 mL auto-injector 0.3 mg IM UD PRN (Reason: Allergic Reaction) albuterol sulfate [Proventil] 2.5 mg /3 mL (0.083 %) Solution For Nebulization 2.5 mg INHALATION Q4H PRN (Reason: Shortness Of Breath Or Wheezing) cetirizine [Zyrtec] 10 mg Tablet 10 mg PO DAILY Children's Multivitamins Tablet,Chewable 1 tab PO DAILY tetrahydrozoline [Visine] 0.05 % Drops 1 drp OPB DIRECTED PRN (Reason: NEEDED) cyanocobalamin (vitamin B-12) [Vitamin B-12] 500 mcg Tablet 500 mcg PO DAILY Rx Instructions: GUMMIES ascorbic acid (vitamin C) [Vitamin C] 500 mg Tablet 500 mg PO DAILY furosemide 80 mg tablet 80 mg PO BID ibuprofen 200 mg Tablet 800 mg PO BID ergocalciferol (vitamin D2) [Vitamin D2] 1,250 mcg (50,000 unit) Capsule 1,250 mcg PO 3XWK Rx Instructions: MON, WED, FRI fluticasone propion-salmeterol [Advair HFA] 230-21 mcg/actuation Hfa Aerosol Inhaler 2 puff INHALATION BID milk thistle seed extract 250 mg Capsule 250 mg PO DAILY Rx Instructions: give with meal/snack gabapentin 300 mg capsule 300 mg PO BID Referrals Referrals: Radha Bardales MD [Primary Care Provider] -
[2024-12-20 16:48] LABS: Base Excess VBG 5.9 mEq/L; HCO3 VBG 32 mmol/L; Oxygen Saturation VBG < 60.0 %; PCO2 VBG 49 mmHg (38-50); PO2 VBG 36 mmHg; pH VBG 7.42 (7.36-7.41)
[2024-12-20 16:54] LABS: Hematocrit (blood only) 46.3 % (37.0-47.0); Hemoglobin 15.0 g/dl (12.0-16.0); Immature Granulocytes # (auto) 0.05 K/uL (0.01-0.20); Immature Granulocytes % (auto) 0.6 %; Mean Corpuscular Hemoglobin 28.6 pg (25.0-34.0); Mean Corpuscular Volume 88.4 fL (80.0-100.0); Platelet Count 321 K/uL (130-400); RDW Standard Deviation 43.6 fL (36.4-46.3); Red Blood Count 5.24 M/uL (4.20-5.40); White Blood Count 8.18 K/ul (4.8-10.8)
[2024-12-20] MEDS: ALBUT/IPRATROP 3MG/0.5MG NEB 3 ML VIAL NEB STA (17:05)
[2024-12-20 17:10] LABS: Alanine Aminotransferase 19.0 U/L (7-52); Albumin Globulin Ratio 1.1 (0.9-2); Albumin Level 3.9 gm/dl (3.4-5.0); Alkaline Phosphatase 124.0 U/L (34-104); Anion Gap 9.0 (3-11); Bilirubin,Total 0.3 mg/dl (0.2-1.0); Blood Urea Nitrogen 14.0 mg/dl (6-23); Calcium 8.8 mg/dl (8.6-10.3); Carbon Dioxide 28.0 mmol/L (21-32); Chloride 105.0 mmol/L (98-107); Creatinine Clr Calc Pharmacy 105.9 ml/min; Globulin 3.5 gm/dl (2.5-4.0); Glucose 100.0 mg/dl (70-99(Fasting)); Magnesium 1.9 mg/dl (1.7-2.4); Potassium 3.7 mmol/L (3.5-5.1); Sodium 142.0 mmol/L (136-145); Total Protein 7.4 gm/dl (6.0-8.3)
[2024-12-20] MEDS: RACEPINEPHRINE 2.25% NEBU SOLN 0.5 ML VIAL ONE (17:28)
--- NOTE | 2024-12-20 17:30 | XRay Report ---
EXAM: Portable AP chest radiograph TECHNIQUE: AP portable radiograph of the chest was obtained. INDICATION: Shortness of breath Comparison: Chest radiograph May 02, 2024 FINDINGS: LINES and TUBES: None. CARDIOVASCULAR: Cardiac silhouette is stably mildly enlarged in size. LUNGS/PLEURA: No focal consolidation identified. Peribronchial cuffing. Mild pulmonary vascular congestion is similar to appearance. Apparent densities project over the left lung base. No significant pleural fluid. No discernible pneumothorax. OSSEOUS/OTHER: No displaced acute osseous process identified. IMPRESSION: Peribronchial cuffing that may suggest bronchiolitis. Apparent densities project over the left lung base. This may be due to the overlying soft tissues however please clinically correlate with physical examination to exclude pneumonia in this area Electronically signed by Jhonny Cooper 12-20-2024 5:29 PM
[2024-12-20 17:32] LABS: INR 0.9 (0.9-1.1); Prothrombin Time 9.8 Seconds (9.0-12.0)
[2024-12-20] MEDS: RACEPINEPHRINE 2.25% NEBU SOLN 0.5 ML VIAL NEB STA ×2 (17:33→18:49)
[2024-12-20 18:09] LABS: Chlamydia pneumoniae PCR Not Detected (NotDetected); Coronavirus 229E PCR Not Detected (NotDetected); Coronavirus CoV-2 (COVID19)PCR Not Detected (NotDetected); Coronavirus HKU1 PCR Not Detected (NotDetected); Coronavirus NL63 PCR Not Detected (NotDetected); Coronavirus OC43PCR Not Detected (NotDetected); Human Metapneumovirus PCR Not Detected (NotDetected); Parainfluenza Virus 1 PCR Not Detected (NotDetected); Parainfluenza Virus 2 PCR Not Detected (NotDetected); Parainfluenza Virus 3 PCR Not Detected (NotDetected); Parainfluenza Virus 4 PCR Not Detected (NotDetected); Respiratory Syncytial VirusPCR Not Detected (NotDetected); Rhinovirus/Enterovirus PCR DETECTED (NotDetected)
[2024-12-20] MEDS: MAGNESIUM SULFATE / D5W 1 GM/100 ML BAG IV STA (18:33)
[2024-12-20] MEDS: FAMOTIDINE 20MG IV PUSH 20 MG/5 ML SYR IV STA (18:35)
[2024-12-20] MEDS: ALBUT/IPRATROP 3MG/0.5MG NEB 3 ML VIAL NEB ONE (19:04)
--- NOTE | 2024-12-20 21:01 | History & Physical Report ---
Date of Service December 20, 2024 Assessment & Plan (1) Acute asthma exacerbation: Plan: Assessment and plan below following discussion of case with ED provider and reviewing patient history/pertinent normal/abnormal diagnostic test results. Acute asthma exacerbation Secondary to entero-/rhinovirus infection No sepsis for now Improved symptoms after initial ER intervention Right leg swelling rule out DVT chronic diastolic heart failure (EF 55%, TTE 2023), patient euvolemic to dry hypertension, elevated secondary to illness hyperlipidemia, not on statin Rx JOLYNN on CPAP morbid obesity mood disorder, stable OBS Admit to med/tele Nebs RTC, steroid course Supportive management for viral illness. No indication for antibiotics for now. Pulmonology consult if without improvement RLE venous Dopplers rule out DVT Initiate losartan if persistent BP elevation DVT prophylaxis. Lovenox subcu Full code Text document was generated using [employer] voice recognition software. It may contain grammatical or spelling errors. Kindly contact undersigned for clarification of any documentation item in question. History of Present Illness Chief Complaint: Worsening SOB Primary Care Provider: Radha Bardales MD History obtained from patient and records. Medical history significant for chronic diastolic heart failure (EF 55%, TTE 2023), hypertension, hyperlipidemia, bronchial asthma, JOLYNN on CPAP, morbid obesity, GERD, IBS, allergic rhinitis/eosinophilia as per records, migraine, mood disorder. Last confinement December 2019 under General Surgery service for acute calculous cholecystitis status post surgery. 2 days history of clear sputum associated with worsening shortness of breath. No chest pain. No unusual fluid retention. Denies aspiration. Right lower leg more swollen than usua. 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 Patient consulted [facility] ER yesterday. Unremarkable workup as per patient. Patient given a dose of steroids and nebs at ER and told to follow-up with PCP. Worsening wheezing at home. Denies headache symptoms. Patient directed to ER for evaluation. Solu-Medrol, neb treatment administered at the ER SBP 190s upon arrival at the ER. Patient feeling much better. Medical History as above Surgical History : Breast lesion excision, section, D&C, urologic procedure, tonsillectomy/adenectomy, cholecystectomy Family History : Breast cancer, celiac disease, vaginal cancer Personal/Social history : Non-smoker, no EtOH intake, high school industrial arts teacher Allergies Allergy/AdvReac Type Severity Reaction Status Date / Time bee venom protein (honey bee) Allergy Severe Anaphylaxis Verified 12/20/24 18:28 Influenza Virus Vaccines Allergy Severe SEVERE Verified 12/20/24 18:28 REACTION. HOSPITALIZED--ICU X 3 DAYS lavender (Lavandula Allergy Severe Wheezing Verified 12/20/24 18:28 angustifolia) pneumococcal vaccine Allergy Severe SEVERE Verified 12/20/24 18:28 REACTION. HOSPITALIZED--ICU X 3 DAYS nickel Allergy Mild itchy rash Verified 12/20/24 18:28 Home Medications Medication Instructions Recorded Confirmed Type albuterol sulfate 90 mcg/actuation 2 inh inhalation Q4 PRN Wheezing 01/19/20 12/20/24 History aerosol inhaler montelukast 10 mg tablet 10 mg PO HS 01/19/20 12/20/24 History omeprazole 20 mg capsule,delayed 20 mg PO QAM 01/19/20 12/20/24 History release epinephrine 0.3 mg/0.3 mL 0.3 mg IM UD PRN Allergic Reaction 07/30/20 12/20/24 History injection, auto-injector gabapentin 300 mg capsule 300 mg PO BID 05/02/24 12/20/24 History albuterol sulfate 2.5 mg/3 mL 2.5 mg inhalation Q4H PRN 12/20/24 12/20/24 History (0.083 %) solution for nebulization Shortness Of Breath Or Wheezing ascorbic acid (vitamin C) 500 mg 500 mg PO DAILY 12/20/24 12/20/24 History tablet (Vitamin C) cetirizine 10 mg tablet (Zyrtec) 10 mg PO DAILY 12/20/24 12/20/24 History cyanocobalamin (vitamin B-12) 500 500 mcg PO DAILY 12/20/24 12/20/24 History mcg tablet (Vitamin B-12) ergocalciferol (vitamin D2) 1,250 1,250 mcg PO 3XWK 12/20/24 12/20/24 History mcg (50,000 unit) capsule (Vitamin D2) fluticasone propionate 230 2 puff inhalation BID 12/20/24 12/20/24 History mcg-salmeterol 21 mcg/actuation HFA inhaler (Advair HFA) furosemide 80 mg tablet 80 mg PO BID 12/20/24 12/20/24 History ibuprofen 200 mg tablet 800 mg PO BID 12/20/24 12/20/24 History milk thistle seed extract 250 mg 250 mg PO DAILY 12/20/24 12/20/24 History capsule pediatric multivitamin 1 tab PO DAILY 12/20/24 12/20/24 History tetrahydrozoline 0.05 % eye drops 1 drp OPB DIRECTED PRN NEEDED 12/20/24 12/20/24 History (Visine) Past Med/Surg History Problem List (Updated 12/21/24 @ 00:28 by Sandi Monte) Enterovirus infection (Acute) Rhinovirus infection (Acute) Acute viral bronchiolitis (Acute) Acute dyspnea (Acute) Stridor (Acute) Acute asthma exacerbation (Acute) Encounter for pre-operative examination Nausea, vomiting and diarrhea (Acute) Encounter for pre-operative examination Status post section (Acute 12/18/12) Pre-eclampsia (Acute 12/18/12) Chest pain (Acute) Morbid obesity BMI 44.5 History of delivery X 3 Irritable bowel syndrome with constipation Osteoarthritis GERD (gastroesophageal reflux disease) Medical History Sleep apnea cpap History of COVID-19 diagnosed 01/2020--mild symptoms, no symptoms now Hypertension History of anesthesia reaction per pt her "heart stopped when I had my tonsils out"--has had surgeries since without any issues Asthma inhaler daily and prn Surgical History History of tooth extraction History of cholecystectomy History of colonoscopy last 10/2020 @ [facility] H/O tubal ligation History of tonsillectomy Family History Other No family history of adverse response to anesthesia Social History Smoking Status: Never smoker Second Hand Exposure: No; Do You Dip or Chew Tobacco: No; Hx Alcohol Use: No Hx Substance Use: No Preferred Language: Urdu Communication Ability: Effective Lockstitch Front Edge Tape Sewer Required: No Beliefs That Will Affect Care: None marital status: Current Living Situation: Spouse and Family Current Living Situation Comment: Lives with and 9yr old daughter current occupational status: employed Other Information That Helps Us Care for You: No Feels Safe at Home: Yes Safety Concerns: Feels Safe At This Time Assistive Devices: Glasses Review of Systems Review of Systems: As per HPI, all other systems reviewed and negative Physical Exam Physical Exam: GENERAL: Comfortable, pleasant, morbidly obese, no respiratory distress SKIN: Normal color, warm HEENT: [place] palpebral conjunctivae, no ptosis, dry buccal mucosa NECK : Supple, short neck, no tenderness CHEST : Decreased breath sounds, expiratory wheezes, no tenderness HEART : RRR, no obvious murmurs ABDOMEN: Some distention, nontender EXTREMITIES : Bilateral LE swelling, no LE tenderness, palpable pulses, no other conspicuous deformities noted NEUROLOGIC : Coherent, no facial asymmetry, no other gross focality Results & Data Results & Data Vital Signs (Past 12 Hours) Vital Signs Temp Pulse Pulse Resp BP BP Pulse Ox 12/20/24 20:03 126 H 16 144/107 H 99 12/20/24 19:42 117 H 16 100 12/20/24 19:06 100 H 25 H 152/107 H 94 12/20/24 18:36 91 H 21 151/85 H 99 12/20/24 18:30 93 H 24 151/85 H 98 12/20/24 18:01 95 H 20 178/104 H 96 12/20/24 17:55 96 H 12/20/24 16:59 91 H 21 155/97 H 95 12/20/24 16:31 95 12/20/24 16:15 36.6 C 99 H 36 H 191/111 H 95 O2 Del Method O2 Flow Rate 12/20/24 20:03 12/20/24 19:42 12/20/24 19:06 12/20/24 18:36 12/20/24 18:30 Room Air 12/20/24 18:01 12/20/24 17:55 12/20/24 16:59 Room Air 12/20/24 16:31 Other 8 12/20/24 16:15 Room Air Laboratory Results Laboratory Results WBC 8.18 K/ul (4.8-10.8) 12/20/24 16:40 RBC 5.24 M/uL (4.20-5.40) 12/20/24 16:40 Hgb 15.0 g/dl (12.0-16.0) 12/20/24 16:40 Hct 46.3 % (37.0-47.0) 12/20/24 16:40 MCV 88.4 fL (80.0-100.0) 12/20/24 16:40 MCH 28.6 pg (25.0-34.0) 12/20/24 16:40 MCHC 32.4 g/dL (32.0-36.0) 12/20/24 16:40 RDW Std Deviation 43.6 fL (36.4-46.3) 12/20/24 16:40 RDW Coeff of Kimberly 13.5 % (11.5-14.5) 12/20/24 16:40 Plt Count 321 K/uL (130-400) 12/20/24 16:40 MPV 9.2 fL (9.4-12.4) L 12/20/24 16:40 Immature Gran % (Auto) 0.6 % 12/20/24 16:40 Neut % (Auto) 61.5 % 12/20/24 16:40 Lymph % (Auto) 24.1 % 12/20/24 16:40 [place] % (Auto) 9.8 % 12/20/24 16:40 Eos % (Auto) 3.1 % 12/20/24 16:40 Baso % (Auto) 0.9 % 12/20/24 16:40 Neut # (Auto) 5.04 K/uL (1.40-6.50) 12/20/24 16:40 Lymph # (Auto) 1.97 K/uL (1.20-3.40) 12/20/24 16:40 [place] # (Auto) 0.80 K/uL (0.11-0.59) H 12/20/24 16:40 Eos # (Auto) 0.25 K/uL (0.00-0.50) 12/20/24 16:40 Baso # (Auto) 0.07 K/uL (0.00-0.20) 12/20/24 16:40 Immature Gran # (Auto) 0.05 K/uL (0.01-0.20) 12/20/24 16:40 PT 9.8 Seconds (9.0-12.0) 12/20/24 16:40 INR 0.9 (0.9-1.1) 12/20/24 16:40 VBG pH 7.42 (7.36-7.41) H 12/20/24 16:40 VBG pCO2 49 mmHg (38-50) 12/20/24 16:40 VBG pO2 36 mmHg 12/20/24 16:40 VBG HCO3 32 mmol/L 12/20/24 16:40 VBG O2 Saturation < 60.0 % 12/20/24 16:40 VBG Base Excess 5.9 mEq/L 12/20/24 16:40 Sodium 142 mmol/L (136-145) 12/20/24 16:40 Potassium 3.7 mmol/L (3.5-5.1) 12/20/24 16:40 Chloride 105 mmol/L (98-107) 12/20/24 16:40 Carbon Dioxide 28 mmol/L (21-32) 12/20/24 16:40 Anion Gap 9 (3-11) 12/20/24 16:40 BUN 14 mg/dl (6-23) 12/20/24 16:40 Creatinine 0.77 mg/dl (0.6-1.2) 12/20/24 16:40 Est Cr Clr Drug Dosing 105.9 ml/min 12/20/24 16:40 eGFR 91.61 12/20/24 16:40 BUN/Creatinine Ratio 18.2 (10-20) 12/20/24 16:40 Glucose 100 mg/dl (70-99(Fasting)) H 12/20/24 16:40 Calcium 8.8 mg/dl (8.6-10.3) 12/20/24 16:40 Magnesium 1.9 mg/dl (1.7-2.4) 12/20/24 16:40 Total Bilirubin 0.3 mg/dl (0.2-1.0) 12/20/24 16:40 AST 22 U/L (13-39) 12/20/24 16:40 ALT 19 U/L (7-52) 12/20/24 16:40 Alkaline Phosphatase 124 U/L (34-104) H 12/20/24 16:40 Troponin I High Sens 4.6 pg/ml (0-14) 12/20/24 16:40 Total Protein 7.4 gm/dl (6.0-8.3) 12/20/24 16:40 Albumin 3.9 gm/dl (3.4-5.0) 12/20/24 16:40 Globulin 3.5 gm/dl (2.5-4.0) 12/20/24 16:40 Albumin/Globulin Ratio 1.1 (0.9-2) 12/20/24 16:40 Adenovirus (PCR) Not Detected (NotDetected) 12/20/24 Unknown B. pertussis DNA (PCR) Not Detected (NotDetected) 12/20/24 Unknown B.parapertussis DNA PCR Not Detected (NotDetected) 12/20/24 Unknown C. pneumoniae DNA (PCR) Not Detected (NotDetected) 12/20/24 Unknown Coronavirus OC43 (PCR) Not Detected (NotDetected) 12/20/24 Unknown Coronavirus HKU1 (PCR) Not Detected (NotDetected) 12/20/24 Unknown Coronavirus 229E (PCR) Not Detected (NotDetected) 12/20/24 Unknown SARS-CoV-2 (PCR) Not Detected (NotDetected) 12/20/24 Unknown Coronavirus NL63 (PCR) Not Detected (NotDetected) 12/20/24 Unknown Human Metapneumovir PCR Not Detected (NotDetected) 12/20/24 Unknown Influenza Type A (PCR) Not Detected (NotDetected) 12/20/24 Unknown Influenza Type B (PCR) Not Detected (NotDetected) 12/20/24 Unknown M. pneumoniae (PCR) Not Detected (NotDetected) 12/20/24 Unknown Parainfluenza 1 (PCR) Not Detected (NotDetected) 12/20/24 Unknown Parainfluenza 2 (PCR) Not Detected (NotDetected) 12/20/24 Unknown Parainfluenza 3 (PCR) Not Detected (NotDetected) 12/20/24 Unknown Parainfluenza 4 (PCR) Not Detected (NotDetected) 12/20/24 Unknown RSV (PCR) Not Detected (NotDetected) 12/20/24 Unknown Entero/Rhino (PCR) DETECTED (NotDetected) A 12/20/24 Unknown Impressions Chest X-Ray 12/20/24 16:31 EXAM: Portable AP chest radiograph TECHNIQUE: AP portable radiograph of the chest was obtained. INDICATION: Shortness of breath Comparison: Chest radiograph May 02, 2024 FINDINGS: LINES and TUBES: None. CARDIOVASCULAR: Cardiac silhouette is stably mildly enlarged in size. LUNGS/PLEURA: No focal consolidation identified. Peribronchial cuffing. Mild pulmonary vascular congestion is similar to appearance. Apparent densities project over the left lung base. No significant pleural fluid. No discernible pneumothorax. OSSEOUS/OTHER: No displaced acute osseous process identified. IMPRESSION: Peribronchial cuffing that may suggest bronchiolitis. Apparent densities project over the left lung base. This may be due to the overlying soft tissues however please clinically correlate with physical examination to exclude pneumonia in this area Electronically signed by Jhonny Cooper 12-20-2024 5:29 PM Diagnostic Findings EKG as per my interpretation :Rate 90, NSR, normal axis, no ischemia Code Status & VTE Plan VTE Prophylaxis Plan VTE Prophylaxis will be ordered: Yes
[2024-12-20] MEDS: METOPROLOL TARTRATE 1 MG/ML VIAL IV STA (21:21)
[2024-12-20] MEDS: MAGNESIUM SULFATE / D5W 1 GM/100 ML BAG IV ONE (22:49)
[2024-12-20] MEDS: GABAPENTIN 300 MG CAP PO SCH (22:49)
--- NOTE | 2024-12-21 00:06 | Ultrasound Report ---
Exam(s): US VENOUS RIGHT LOWER EXTREMITY EXAM: US Duplex Right Lower Extremity Veins CLINICAL HISTORY: Swelling. TECHNIQUE: Real-time duplex ultrasound scan of the right lower extremity veins integrating B-mode two-dimensional vascular structure, Doppler spectral analysis, color flow Doppler imaging and compression. COMPARISON: No relevant prior studies available. FINDINGS: Limited by patient's body habitus. Deep veins: Unremarkable. No DVT in the visualized common femoral, femoral, proximal deep femoral or popliteal veins. The veins demonstrate normal color flow, are normally compressible, with normal phasic flow and/or augmentation response. Superficial veins: Unremarkable. No thrombus in the visualized great saphenous vein. Soft tissues: No acute abnormality. No popliteal cyst. IMPRESSION: No evidence of deep venous thrombosis. Electronically signed by: Earnest Martinez M.D. 12/21/24 00:05 AM
[2024-12-21] MEDS ORDERED: CETIRIZINE HCL 10 MG TABLET PO STA (00:24)
[2024-12-21] MEDS: ALBUMIN 25% 25 GM/100 ML VIAL IV ONE (00:30)
[2024-12-21] MEDS: POTASSIUM CHLORIDE CRTAB 20 MEQ TABCR PO STA (01:08)
[2024-12-21] MEDS: IPRATROPIUM BROMIDE NEB SOLN 0.02% 0.5MG/2.5ML VIAL INH SCH (01:47)
[2024-12-21] MEDS: LEVALBUTEROL 1.25 MG/3 ML NEB NEB SCH (01:51)
[2024-12-21] MEDS: CYANOCOBALAMIN (B-12) 500 MCG TABLET PO STA (01:54)
[2024-12-21] MEDS: MONTELUKAST SODIUM 10 MG TABLET PO STA (02:24)
[2024-12-21] MEDS: FUROSEMIDE 40 MG/4 ML VIAL IV ONE (05:07)
[2024-12-21] MEDS: LOSARTAN POTASSIUM 25 MG TAB PO SCH (06:03)
[2024-12-21 07:30] LABS: Hematocrit (blood only) 41.9 % (37.0-47.0); Hemoglobin 13.6 g/dl (12.0-16.0); Immature Granulocytes # (auto) 0.06 K/uL (0.01-0.20); Immature Granulocytes % (auto) 0.6 %; Mean Corpuscular Hemoglobin 28.3 pg (25.0-34.0); Mean Corpuscular Volume 87.3 fL (80.0-100.0); Platelet Count 363 K/uL (130-400); RDW Standard Deviation 43.6 fL (36.4-46.3); Red Blood Count 4.80 M/uL (4.20-5.40); White Blood Count 10.63 K/ul (4.8-10.8)
[2024-12-21 08:28] LABS: Anion Gap 9.0 (3-11); Blood Urea Nitrogen 14.0 mg/dl (6-23); Calcium 9.6 mg/dl (8.6-10.3); Carbon Dioxide 31.0 mmol/L (21-32); Chloride 101.0 mmol/L (98-107); Creatinine Clr Calc Pharmacy 121.0 ml/min; Glucose 120.0 mg/dl (70-99(Fasting)); Potassium 4.2 mmol/L (3.5-5.1); Sodium 141.0 mmol/L (136-145)
[2024-12-21] MEDS ORDERED: CYANOCOBALAMIN (B-12) 500 MCG TABLET PO SCH (09:00)
[2024-12-21] MEDS ORDERED: CETIRIZINE HCL 10 MG TABLET PO SCH ×2 (09:00→21:00)
[2024-12-21] MEDS ORDERED: LOSARTAN POTASSIUM 25 MG TAB PO SCH (09:00)
[2024-12-21] MEDS ORDERED: FUROSEMIDE 80 MG TAB PO SCH (09:00)
[2024-12-21] MEDS: CETIRIZINE HCL 10 MG TABLET PO SCH (09:08)
[2024-12-21] MEDS: MULTIVITAMIN CHEWABLE TAB PO SCH (09:08)
[2024-12-21] MEDS: ENOXAPARIN INJ 40 MG/0.4 ML SYR SQ SCH (09:08)
[2024-12-21] MEDS: POTASSIUM CHLORIDE CRTAB 20 MEQ TABCR PO SCH (09:11)
[2024-12-21 09:37] LABS: Appearance Urine Clear (Clear); Glucose Urine UA Negative (Negative)
--- NOTE | 2024-12-21 14:45 | Hospitalist Progress Note ---
Date of Service December 21, 2024 Assessment & Plan (1) Acute asthma exacerbation: Plan: Assessment and plan below following discussion of case with ED provider and reviewing patient history/pertinent normal/abnormal diagnostic test results. Acute asthma exacerbation Secondary to entero-/rhinovirus infection No sepsis for now Improved symptoms after initial ER intervention Has been on intravenous Solu-Medrol and nebulized bronchodilator Clinically much better and saturating normally on room air Likely discharge in a day or 2 on tapering dose of steroid Other significant medical conditions remained stable and are as below: Right leg swelling rule out DVTno evidence of DVT Chronic diastolic heart failure (EF 55%, TTE 2023), patient euvolemic to dry Hypertension, elevated secondary to illness-Initiate losartan if persistent BP elevation Hyperlipidemia, not on statin Rx JOLYNN on CPAP Morbid obesity Mood disorder, stable DVT prophylaxis. SmartSignalnox subcu Full code Text document was generated using [employer] voice recognition software. It may contain grammatical or spelling errors. Kindly contact undersigned for clarification of any documentation item in question. Admission and Anticipated Discharge Date Admission Date: December 20, 2024 Subjective 12/21/2024 Patient was seen and examined in medical telemetry unit She complains today of ongoing wheezing but denies any shortness of breath No fever and no chills and saturating normally on room air Review of Systems Review of Systems: All systems reviewed and are unremarkable except as noted below Physical Exam Physical Exam: Lying in bed without any acute distress Constitutional: well developed, well nourished, + ill appearing and + obese Eyes: PERRL, conjunctivae normal, anicteric sclerae ENMT: external ear and nose normal, oropharynx normal Neck: trachea midline, no thyromegaly Respiratory: + respiratory distress (Minimal respirat ory distress) Auscultation: + diminished lung sounds and + wheezes (Widespread wheezing bilaterally) Cardiovascular: Rate/Rhythm: regular rate and regular rhythm; not tachycardic Heart Sounds: normal S1 and normal S2; no murmur Extremities: no edema Gastrointestinal (Abdomen): Inspection/Auscultation: normal bowel sounds; abdomen not distended Percussion/Palpation: abdomen soft; abdomen nontender Musculoskeletal: No acute arthritis involving any of the joints Neurologic: normal touch/pain/proprioception and moves all extremities; no focal motor deficits Psychiatric: A+Ox3, euthymic affect Lymphatic: no cervical or axillary lymphadenopathy Results & Data Results & Data Vital Signs (Past 12 Hours) Vital Signs Temp Pulse Pulse Pulse Resp BP Pulse Ox 12/21/24 12:00 80 18 97 12/21/24 11:43 36.7 C 90 18 163/94 H 95 12/21/24 11:36 12/21/24 07:57 36.6 C 87 18 162/82 H 95 12/21/24 07:23 84 20 95 12/21/24 07:21 79 12/21/24 03:53 91 H 32 H 96 12/21/24 03:30 37.0 C 90 18 184/97 H 94 O2 Del Method FiO2 12/21/24 12:00 Room Air 12/21/24 11:43 Room Air 12/21/24 11:36 Room Air 12/21/24 07:57 Room Air 12/21/24 07:23 Room Air 12/21/24 07:21 12/21/24 03:53 21 12/21/24 03:30 Room Air Laboratory Results Short CBC 12/20/24 12/21/24 Range/Units 16:40 06:51 WBC 8.18 10.63 (4.8-10.8) K/ul Hgb 15.0 13.6 (12.0-16.0) g/dl Hct 46.3 41.9 (37.0-47.0) % Plt Count 321 363 (130-400) K/uL BMP 12/20/24 12/21/24 16:40 06:51 Sodium 142 141 Potassium 3.7 4.2 Chloride 105 101 Carbon Dioxide 28 31 BUN 14 14 Creatinine 0.77 0.64 Glucose 100 H 120 H Calcium 8.8 9.6 Liver Function 12/20/24 Range/Units 16:40 Total Bilirubin 0.3 (0.2-1.0) mg/dl AST 22 (13-39) U/L ALT 19 (7-52) U/L Alkaline Phosphatase 124 H (34-104) U/L Albumin 3.9 (3.4-5.0) gm/dl Urine 12/21/24 Range/Units 09:20 Urine Color Yellow Urine Appearance Clear (Clear) Urine pH 7.0 (4.5-7.5) Ur Specific [place] 1.007 (1.000-1.030) Urine Protein Negative (Negative) Urine Glucose (UA) Negative (Negative) Medications Administered Current Inpatient Medications Cetirizine HCl (Cetirizine Hcl 10 Mg Tablet) 10 mg PO DAILY ANAM Stop: 01/20/25 08:59 Last Admin: 12/21/24 09:08 Dose: 10 mg Cyanocobalamin (Cyanocobalamin (B-12) 500 Mcg Tablet) 500 mcg PO HS ANAM Stop: 01/20/25 20:59 Enoxaparin Sodium (Enoxaparin Inj 40 Mg/0.4 Ml Syr) 40 mg SQ QAM ANAM Stop: 01/20/25 08:59 Last Admin: 12/21/24 09:08 Dose: 40 mg Furosemide (Furosemide 80 Mg Tab) 80 mg PO BID17 ANAM Stop: 01/20/25 20:59 Gabapentin (Gabapentin 300 Mg Cap) 300 mg PO BID ANAM Stop: 01/19/25 21:29 Last Admin: 12/21/24 09:08 Dose: 300 mg Methylprednisolone 40 mg/ (Syringe) 0.64 mls @ 1.5 mls/min IV BID ANAM Stop: 01/20/25 08:59 Last Admin: 12/21/24 09:08 Dose: 1.5 mls/min Ipratropium [place] (Ipratropium [place] Neb Soln 0.02% 0.5mg/2.5ml Vial) 0.5 mg INH Q6R ANAM Stop: 01/20/25 00:59 Last Admin: 12/21/24 12:00 Dose: 0.5 mg Levalbuterol HCl (Levalbuterol 1.25 Mg/3 Ml Neb) 1.25 mg NEB Q6R ANAM Stop: 01/20/25 00:59 Last Admin: 12/21/24 12:00 Dose: 1.25 mg Losartan Potassium (Losartan Potassium 25 Mg Tab) 25 mg PO QAM ANAM Stop: 01/20/25 05:19 Last Admin: 12/21/24 06:03 Dose: 25 mg Montelukast Sodium (Montelukast Sodium 10 Mg Tablet) 10 mg PO HS ANAM Stop: 01/20/25 20:59 Multivitamins/Folic Acid/Vitamin C (Multivitamin Chewable Tab) 1 tab PO DAILY ANAM Stop: 01/20/25 08:59 Last Admin: 12/21/24 09:08 Dose: 1 tab Pantoprazole Sodium (Pantoprazole 40 Mg Tab) 40 mg PO HS ANAM Stop: 01/20/25 20:59 Potassium Chloride (Potassium Chloride Crtab 20 Meq Tabcr) 20 meq PO BID ANAM Stop: 01/20/25 08:59 Last Admin: 12/21/24 09:11 Dose: 20 meq
[2024-12-21] MEDS: FUROSEMIDE 80 MG TAB PO SCH (20:37)
[2024-12-21] MEDS: MONTELUKAST SODIUM 10 MG TABLET PO SCH (20:38)
[2024-12-21] MEDS: CYANOCOBALAMIN (B-12) 500 MCG TABLET PO SCH (20:38)
[2024-12-21] MEDS ORDERED: MONTELUKAST SODIUM 10 MG TABLET PO SCH (21:00)
--- NOTE | 2024-12-21 22:13 | Electrocardiogram Report ---
Test Reason : Blood Pressure : */* mmHG Vent. Rate : 92 BPM Atrial Rate : 92 BPM P-R Int : 124 ms QRS Dur : 70 ms QT Int : 334 ms P-R-T Axes : 35 24 36 degrees QTcB Int : 413 ms Normal sinus rhythm Normal ECG When compared with ECG of 02-May-2024 09:02, No significant change was found Confirmed by Ko Queen ([id number]) on 12/21/2024 10:13:48 PM Referred By: REFERRED SELF Confirmed By: Ko Queen
[2024-12-22 06:33] LABS: Anion Gap 8.0 (3-11); Blood Urea Nitrogen 16.0 mg/dl (6-23); Calcium 10.0 mg/dl (8.6-10.3); Carbon Dioxide 32.0 mmol/L (21-32); Chloride 100.0 mmol/L (98-107); Creatinine Clr Calc Pharmacy 117.4 ml/min; Glucose 133.0 mg/dl (70-99(Fasting)); Potassium 4.3 mmol/L (3.5-5.1); Sodium 140.0 mmol/L (136-145)
[2024-12-22] MEDS ORDERED: IPRATROPIUM BROMIDE NEB SOLN 0.02% 0.5MG/2.5ML VIAL INH PRN (12:19)
[2024-12-22] MEDS ORDERED: LEVALBUTEROL 1.25 MG/3 ML NEB NEB PRN (12:19)
--- NOTE | 2024-12-22 13:04 | Hospitalist Progress Note ---
Date of Service December 22, 2024 Assessment & Plan (1) Acute asthma exacerbation: Plan: Assessment and plan below following discussion of case with ED provider and reviewing patient history/pertinent normal/abnormal diagnostic test results. Acute asthma exacerbation Secondary to entero-/rhinovirus infection No sepsis for now Improved symptoms after initial ER intervention Has been on intravenous Solu-Medrol and nebulized bronchodilator Clinically much better and saturating normally on room air Likely discharge in a day or 2 on tapering dose of steroid Wanted to go home but he still has considerable wheezing Failed 2 steps O2 saturation test due to increased in cough and shortness of breath Nebulized bronchodilators has been changed and Solu-Medrol increased to 60 mg twice daily Likely discharge tomorrow Other significant medical conditions remained stable and are as below: Right leg swelling rule out DVTno evidence of DVT Chronic diastolic heart failure (EF 55%, TTE 2023), patient euvolemic to dry Hypertension, elevated secondary to illness-Initiate losartan if persistent BP elevation Hyperlipidemia, not on statin Rx JOLYNN on CPAP Morbid obesity Mood disorder, stable DVT prophylaxis. [facility] evelyn Full code Text document was generated using [employer] voice recognition software. It may contain grammatical or spelling errors. Kindly contact undersigned for clarification of any documentation item in question. Admission and Anticipated Discharge Date Admission Date: December 20, 2024 Subjective 12/21/2024 Patient was seen and examined in medical telemetry unit She complains today of ongoing wheezing but denies any shortness of breath No fever and no chills and saturating normally on room air 12/22/2024 The patient was seen and examined in medical telemetry unit in presence of the family members She still has considerable wheezing and did not complete 2 steps test Her nebulizer treatment has been changed to as per respiratory therapist and Solu-Medrol dose is increased to 60 mg twice daily Review of Systems Review of Systems: All systems reviewed and are unremarkable except as noted below Physical Exam Physical Exam: Lying in bed without any acute distress Constitutional: well developed, well nourished, + ill appearing and + obese Eyes: PERRL, conjunctivae normal, anicteric sclerae ENMT: external ear and nose normal, oropharynx normal Neck: trachea midline, no thyromegaly Respiratory: + respiratory distress (Minimal respirat ory distress) Auscultation: + diminished lung sounds and + wheezes (Widespread wheezing bilaterally) Cardiovascular: Rate/Rhythm: regular rate and regular rhythm; not tachycardic Heart Sounds: normal S1 and normal S2; no murmur Extremities: no edema Gastrointestinal (Abdomen): Inspection/Auscultation: normal bowel sounds; abdomen not distended Percussion/Palpation: abdomen soft; abdomen nontender Neurologic: normal touch/pain/proprioception and moves all extremities; no focal motor deficits Psychiatric: A+Ox3, euthymic affect Lymphatic: no cervical or axillary lymphadenopathy Results & Data Results & Data Vital Signs (Past 12 Hours) Vital Signs Temp Pulse Pulse Resp BP Pulse Ox O2 Del Method 12/22/24 12:10 36.9 C 75 18 104/67 93 Room Air 12/22/24 11:57 117 H 30 H 94 Room Air 12/22/24 10:34 Room Air 12/22/24 08:10 36.5 C 83 18 138/80 95 Room Air 12/22/24 07:04 69 18 95 Room Air 12/22/24 05:45 69 12/22/24 02:04 36.7 C 69 20 130/75 94 Room Air, CPAP FiO2 12/22/24 12:10 12/22/24 11:57 21 12/22/24 10:34 12/22/24 08:10 12/22/24 07:04 12/22/24 05:45 12/22/24 02:04 Laboratory Results [facility] 12/22/24 05:34 Sodium 140 Potassium 4.3 Chloride 100 Carbon Dioxide 32 BUN 16 Creatinine 0.66 Glucose 133 H Calcium 10.0 Medications Administered Current Inpatient Medications Cetirizine HCl (Cetirizine Hcl 10 Mg Tablet) 10 mg PO DAILY [facility] Stop: 01/20/25 08:59 Last Admin: 12/22/24 08:58 Dose: 10 mg Cyanocobalamin (Cyanocobalamin (B-12) 500 Mcg Tablet) 500 mcg PO HS [facility] Stop: 01/20/25 20:59 Last Admin: 12/21/24 20:38 Dose: 500 mcg Enoxaparin Sodium (Enoxaparin Inj 40 Mg/0.4 Ml Syr) 40 mg SQ QAM [facility] Stop: 01/20/25 08:59 Last Admin: 12/22/24 08:59 Dose: 40 mg Furosemide (Furosemide 80 Mg Tab) 80 mg PO BID17 ANAM Stop: 01/20/25 20:59 Last Admin: 12/22/24 08:58 Dose: 80 mg Gabapentin (Gabapentin 300 Mg Cap) 300 mg PO BID [facility] Stop: 01/19/25 21:29 Last Admin: 12/22/24 08:59 Dose: 300 mg Methylprednisolone 60 mg/ (Syringe) 0.96 mls @ 1.5 mls/min IV BID [facility] Stop: 01/21/25 20:59 Ipratropium [place] (Ipratropium [place] Neb Soln 0.02% 0.5mg/2.5ml Vial) 0.5 mg INH Q6R [facility] Stop: 01/21/25 18:59 Levalbuterol HCl (Levalbuterol 1.25 Mg/3 Ml Neb) 1.25 mg NEB Q6R [facility] Stop: 01/21/25 18:59 Losartan Potassium (Losartan Potassium 25 Mg Tab) 25 mg PO QAM A[facility] Stop: 01/20/25 05:19 Last Admin: 12/22/24 08:59 Dose: 25 mg Montelukast Sodium (Montelukast Sodium 10 Mg Tablet) 10 mg PO HS A[facility] Stop: 01/20/25 20:59 Last Admin: 12/21/24 20:38 Dose: 10 mg Multivitamins/Folic Acid/Vitamin C (Multivitamin Chewable Tab) 1 tab PO DAILY [facility] Stop: 01/20/25 08:59 Last Admin: 12/22/24 08:58 Dose: 1 tab Pantoprazole Sodium (Pantoprazole 40 Mg Tab) 40 mg PO HS A[facility] Stop: 01/20/25 20:59 Last Admin: 12/21/24 20:38 Dose: 40 mg Potassium Chloride (Potassium Chloride Crtab 20 Meq Tabcr) 20 meq PO BID [facility] Stop: 01/20/25 08:59 Last Admin: 12/22/24 08:58 Dose: 20 meq
[2024-12-22] MEDS: IPRATROPIUM BROMIDE NEB SOLN 0.02% 0.5MG/2.5ML VIAL INH SCH (15:56)
[2024-12-22] MEDS: LEVALBUTEROL 1.25 MG/3 ML NEB NEB SCH (15:56)
[2024-12-23] MEDS: FUROSEMIDE 40 MG/4 ML VIAL IV ONE (10:58)
--- NOTE | 2024-12-23 13:57 | Hospitalist Progress Note ---
Date of Service December 23, 2024 Assessment & Plan (1) Acute asthma exacerbation: Plan: Assessment and plan below following discussion of case with ED provider and reviewing patient history/pertinent normal/abnormal diagnostic test results. Acute asthma exacerbation Secondary to entero-/rhinovirus infection No sepsis for now Improved symptoms after initial ER intervention Has been on intravenous Solu-Medrol and nebulized bronchodilator Clinically much better and saturating normally on room air Likely discharge in a day or 2 on tapering dose of steroid Wanted to go home but he still has considerable wheezing Failed 2 steps O2 saturation test due to increased in cough and shortness of breath Nebulized bronchodilators has been changed and Solu-Medrol increased to 60 mg twice daily Clinically not any better and he still has profuse wheezing and shortness of breath with exertion Will increase her Solu-Medrol to 60 mg twice daily and also give her 40 milligram of Lasix intravenously to have more diuresis Will continue nebulized bronchodilator and check electrolytes tomorrow Likely discharge tomorrow Other significant medical conditions remained stable and are as below: Right leg swelling rule out DVTno evidence of DVT Chronic diastolic heart failure (EF 55%, TTE 2023), patient euvolemic to dry Hypertension, elevated secondary to illness-Initiate losartan if persistent BP elevation Hyperlipidemia, not on statin Rx JOLYNN on CPAP Morbid obesity Mood disorder, stable DVT prophylaxis. Juan rivasu Full code Text document was generated using [employer] voice recognition software. It may contain grammatical or spelling errors. Kindly contact undersigned for clarification of any documentation item in question. Admission and Anticipated Discharge Date Admission Date: December 22, 2024 Subjective 12/21/2024 Patient was seen and examined in medical telemetry unit She complains today of ongoing wheezing but denies any shortness of breath No fever and no chills and saturating normally on room air 12/22/2024 The patient was seen and examined in medical telemetry unit in presence of the family members She still has considerable wheezing and did not complete 2 steps test Her nebulizer treatment has been changed to as per respiratory therapist and Solu-Medrol dose is increased to 60 mg twice daily 12/23/2024 The patient was seen and examined in medical telemetry unit She has not been any better compared with yesterday Continues to have profuse wheezing and shortness of breath with exertion I was she will not be discharged today Review of Systems Review of Systems: All systems reviewed and are unremarkable except as noted below Physical Exam Physical Exam: Lying in bed without any acute distress Constitutional: well developed, well nourished, + ill appearing and + obese Eyes: PERRL, conjunctivae normal, anicteric sclerae ENMT: external ear and nose normal, oropharynx normal Neck: trachea midline, no thyromegaly Respiratory: + respiratory distress (Minimal respirat ory distress) Auscultation: + diminished lung sounds and + wheezes (Widespread wheezing bilaterally) Cardiovascular: Rate/Rhythm: regular rate and regular rhythm; not tachycardic Heart Sounds: normal S1 and normal S2; no murmur Extremities: no edema Gastrointestinal (Abdomen): Inspection/Auscultation: normal bowel sounds; abdomen not distended Percussion/Palpation: abdomen soft; abdomen nontender Neurologic: normal touch/pain/proprioception and moves all extremities; no focal motor deficits Psychiatric: A+Ox3, euthymic affect Lymphatic: no cervical or axillary lymphadenopathy Results & Data Results & Data Vital Signs (Past 12 Hours) Vital Signs Temp Pulse Pulse Resp BP Pulse Ox O2 Del Method 12/23/24 13:26 86 19 98 Room Air 12/23/24 13:15 84 12/23/24 10:59 36.4 C L 87 18 133/90 93 Room Air 12/23/24 09:36 84 34 H 93 Room Air 12/23/24 09:07 Room Air 12/23/24 07:49 36.4 C L 81 20 148/88 H 92 Room Air 12/23/24 07:15 78 17 97 Room Air 12/23/24 05:47 69 12/23/24 04:00 36.8 C 79 18 143/78 H 93 CPAP 12/23/24 01:58 72 21 96 12/23/24 01:55 76 21 96 CPAP FiO2 12/23/24 13:26 21 12/23/24 13:15 12/23/24 10:59 12/23/24 09:36 21 12/23/24 09:07 12/23/24 07:49 12/23/24 07:15 21 12/23/24 05:47 12/23/24 04:00 12/23/24 01:58 12/23/24 01:55 Medications Administered Current Inpatient Medications Cetirizine HCl (Cetirizine Hcl 10 Mg Tablet) 10 mg PO DAILY [facility]: 01/20/25 08:59 Last Admin: 12/23/24 09:21 Dose: 10 mg Cyanocobalamin (Cyanocobalamin (B-12) 500 Mcg Tablet) 500 mcg PO HS ANAM Stop: 01/20/25 20:59 Last Admin: 12/22/24 19:49 Dose: 500 mcg Enoxaparin Sodium (Enoxaparin Inj 40 Mg/0.4 Ml Syr) 40 mg SQ QAM A[facility] Stop: 01/20/25 08:59 Last Admin: 12/23/24 09:21 Dose: 40 mg Furosemide (Furosemide 80 Mg Tab) 80 mg PO BID17 A[facility] Stop: 01/20/25 20:59 Last Admin: 12/23/24 09:21 Dose: 80 mg Gabapentin (Gabapentin 300 Mg Cap) 300 mg PO BID A[facility] Stop: 01/19/25 21:29 Last Admin: 12/23/24 09:22 Dose: 300 mg Methylprednisolone 60 mg/ (Syringe) 0.96 mls @ 1.5 mls/min IV BID A[facility] Stop: 01/21/25 20:59 Last Admin: 12/23/24 09:20 Dose: 1.5 mls/min Ipratropium [place] (Ipratropium [place] Neb Soln 0.02% 0.5mg/2.5ml Vial) 0.5 mg INH Q6R ANMA Stop: 01/21/25 18:59 Last Admin: 12/23/24 13:26 Dose: 0.5 mg Levalbuterol HCl (Levalbuterol 1.25 Mg/3 Ml Neb) 1.25 mg NEB Q6R A[facility] Stop: 01/21/25 18:59 Last Admin: 12/23/24 13:26 Dose: 1.25 mg Losartan Potassium (Losartan Potassium 25 Mg Tab) 25 mg PO QAM ANAM Stop: 01/20/25 05:19 Last Admin: 12/23/24 09:22 Dose: 25 mg Montelukast Sodium (Montelukast Sodium 10 Mg Tablet) 10 mg PO HS ANAM Stop: 01/20/25 20:59 Last Admin: 12/22/24 19:50 Dose: 10 mg Multivitamins/Folic Acid/Vitamin C (Multivitamin Chewable Tab) 1 tab PO DAILY [facility] Stop: 01/20/25 08:59 Last Admin: 12/23/24 09:22 Dose: 1 tab Pantoprazole Sodium (Pantoprazole 40 Mg Tab) 40 mg PO HS ANAM Stop: 01/20/25 20:59 Last Admin: 12/22/24 19:50 Dose: 40 mg Potassium Chloride (Potassium Chloride Crtab 20 Meq Tabcr) 20 meq PO BID A[facility] Stop: 01/20/25 08:59 Last Admin: 12/23/24 09:21 Dose: 20 meq
[2024-12-24 07:19] LABS: Anion Gap 11.0 (3-11); Blood Urea Nitrogen 33.0 mg/dl (6-23); Calcium 9.9 mg/dl (8.6-10.3); Carbon Dioxide 28.0 mmol/L (21-32); Chloride 97.0 mmol/L (98-107); Creatinine Clr Calc Pharmacy 101.1 ml/min; Glucose 133.0 mg/dl (70-99(Fasting)); Magnesium 2.3 mg/dl (1.7-2.4); Potassium 4.5 mmol/L (3.5-5.1); Sodium 136.0 mmol/L (136-145)
[2024-12-24 10:30] VITALS: BP 161/89; TEMP 97.9
[2024-12-24 11:01] VITALS: RESP 18
[2024-12-24 12:06] VITALS: O2SAT 94
--- NOTE | 2024-12-24 12:11 | Hospitalist Progress Note ---
Date of Service December 24, 2024 Assessment & Plan (1) Acute asthma exacerbation: Plan: Assessment and plan below following discussion of case with ED provider and reviewing patient history/pertinent normal/abnormal diagnostic test results. Acute asthma exacerbation Secondary to entero-/rhinovirus infection No sepsis for now Improved symptoms after initial ER intervention Has been on intravenous Solu-Medrol and nebulized bronchodilator Clinically much better and saturating normally on room air Likely discharge in a day or 2 on tapering dose of steroid Wanted to go home but he still has considerable wheezing Failed 2 steps O2 saturation test due to increased in cough and shortness of breath Nebulized bronchodilators has been changed and Solu-Medrol increased to 60 mg twice daily Clinically not any better and he still has profuse wheezing and shortness of breath with exertion Will increase her Solu-Medrol to 60 mg twice daily and also give her 40 milligram of Lasix intravenously to have more diuresis Will continue nebulized bronchodilator and check electrolytes tomorrow Clinically much better with less wheezing and no shortness of breath more than usual with activities She has had 2 steps O2 saturation test and does not require any oxygen She will be discharged home this afternoon- advised to take rest for the next day or 2 and go back to work on Monday Other significant medical conditions remained stable and are as below: Right leg swelling rule out DVTno evidence of DVT Chronic diastolic heart failure (EF 55%, TTE 2023), patient euvolemic to dry Hypertension, elevated secondary to illness-Initiate losartan if persistent BP elevation Hyperlipidemia, not on statin Rx JOLYNN on CPAP Morbid obesity Mood disorder, stable DVT prophylaxis. [facility] Full code Text document was generated using [employer] voice recognition software. It may contain grammatical or spelling errors. Kindly contact undersigned for clarification of any documentation item in question. Admission and Anticipated Discharge Date Admission Date: December 22, 2024 Subjective 12/21/2024 Patient was seen and examined in medical telemetry unit She complains today of ongoing wheezing but denies any shortness of breath No fever and no chills and saturating normally on room air 12/22/2024 The patient was seen and examined in medical telemetry unit in presence of the family members She still has considerable wheezing and did not complete 2 steps test Her nebulizer treatment has been changed to as per respiratory therapist and Solu-Medrol dose is increased to 60 mg twice daily 12/23/2024 The patient was seen and examined in medical telemetry unit She has not been any better compared with yesterday Continues to have profuse wheezing and shortness of breath with exertion I was she will not be discharged today 12/24/2024 The patient was seen and examined in medical telemetry unit She has been much better with less wheezing at rest Still has minimal cough and denies any fever and/or chills She will be discharged home this afternoon Review of Systems Review of Systems: All systems reviewed and are unremarkable except as noted below Physical Exam Physical Exam: Lying in bed without any acute distress Constitutional: well developed, well nourished, + ill appearing and + obese Eyes: PERRL, conjunctivae normal, anicteric sclerae ENMT: external ear and nose normal, oropharynx normal Neck: trachea midline, no thyromegaly Respiratory: + respiratory distress (Minimal respirat ory distress) Auscultation: + diminished lung sounds and + wheezes ( improved wheezing bilaterally); no crackles Cardiovascular: Rate/Rhythm: regular rate and regular rhythm; not tachycardic Heart Sounds: normal S1 and normal S2; no murmur Extremities: no edema Gastrointestinal (Abdomen): Inspection/Auscultation: normal bowel sounds; abdomen not distended Percussion/Palpation: abdomen soft; abdomen nontender Neurologic: normal touch/pain/proprioception and moves all extremities; no focal motor deficits Psychiatric: A+Ox3, euthymic affect Lymphatic: no cervical or axillary lymphadenopathy Results & Data Results & Data Vital Signs (Past 12 Hours) Vital Signs Temp Pulse Pulse Pulse Pulse Pulse Resp 12/24/24 12:03 76 18 12/24/24 10:50 100 H 100 H 81 12/24/24 10:28 36.6 C 97 H 12/24/24 10:27 36.5 C 76 16 12/24/24 09:52 12/24/24 08:00 36.5 C 80 12/24/24 07:12 69 18 12/24/24 05:34 73 12/24/24 04:10 36.6 C 65 18 12/24/24 03:18 74 21 12/24/24 00:29 74 17 Resp Resp Resp BP Pulse Ox Pulse Ox Pulse Ox 12/24/24 12:03 94 12/24/24 10:50 22 20 18 92 93 12/24/24 10:28 161/89 H 92 12/24/24 10:27 143/82 H 95 12/24/24 09:52 12/24/24 08:00 145/85 H 92 12/24/24 07:12 95 12/24/24 05:34 12/24/24 04:10 146/85 H 92 12/24/24 03:18 97 12/24/24 00:29 97 Pulse Ox O2 Del Method 12/24/24 12:03 Room Air 12/24/24 10:50 96 12/24/24 10:28 Room Air 12/24/24 10:27 Room Air 12/24/24 09:52 Room Air 12/24/24 08:00 Room Air 12/24/24 07:12 Room Air 12/24/24 05:34 12/24/24 04:10 CPAP 12/24/24 03:18 12/24/24 00:29 CPAP Laboratory Results BMP 12/24/24 05:58 Sodium 136 Potassium 4.5 Chloride 97 L Carbon Dioxide 28 BUN 33 H Creatinine 0.76 Glucose 133 H Calcium 9.9 Medications Administered Current Inpatient Medications Cetirizine HCl (Cetirizine Hcl 10 Mg Tablet) 10 mg PO DAILY [facility] Stop: 01/20/25 08:59 Last Admin: 12/24/24 07:52 Dose: 10 mg Cyanocobalamin (Cyanocobalamin (B-12) 500 Mcg Tablet) 500 mcg PO HS A[facility] Stop: 01/20/25 20:59 Last Admin: 12/23/24 21:18 Dose: 500 mcg Enoxaparin Sodium (Enoxaparin Inj 40 Mg/0.4 Ml Syr) 40 mg SQ QAM A[facility] Stop: 01/20/25 08:59 Last Admin: 12/24/24 09:09 Dose: 40 mg Furosemide (Furosemide 80 Mg Tab) 80 mg PO BID17 A[facility] Stop: 01/20/25 20:59 Last Admin: 12/24/24 07:52 Dose: 80 mg Gabapentin (Gabapentin 300 Mg Cap) 300 mg PO BID [facility] Stop: 01/19/25 21:29 Last Admin: 12/24/24 07:52 Dose: 300 mg Methylprednisolone 60 mg/ (Syringe) 0.96 mls @ 1.5 mls/min IV BID A[facility] Stop: 01/21/25 20:59 Last Admin: 12/24/24 09:08 Dose: 1.5 mls/min Ipratropium [place] (Ipratropium [place] Neb Soln 0.02% 0.5mg/2.5ml Vial) 0.5 mg INH Q6R A[facility] Stop: 01/21/25 18:59 Last Admin: 12/24/24 12:03 Dose: 0.5 mg Levalbuterol HCl (Levalbuterol 1.25 Mg/3 Ml Neb) 1.25 mg NEB Q6R A[facility] Stop: 01/21/25 18:59 Last Admin: 12/24/24 12:03 Dose: 1.25 mg Losartan Potassium (Losartan Potassium 25 Mg Tab) 25 mg PO QAM A[facility] Stop: 01/20/25 05:19 Last Admin: 12/24/24 07:52 Dose: 25 mg Montelukast Sodium (Montelukast Sodium 10 Mg Tablet) 10 mg PO HS ANAM Stop: 01/20/25 20:59 Last Admin: 12/23/24 21:18 Dose: 10 mg Multivitamins/Folic Acid/Vitamin C (Multivitamin Chewable Tab) 1 tab PO DAILY [facility] Stop: 01/20/25 08:59 Last Admin: 12/24/24 07:51 Dose: 1 tab Pantoprazole Sodium (Pantoprazole 40 Mg Tab) 40 mg PO HS ANAM Stop: 01/20/25 20:59 Last Admin: 12/23/24 21:18 Dose: 40 mg Potassium Chloride (Potassium Chloride Crtab 20 Meq Tabcr) 20 meq PO BID ANAM Stop: 01/20/25 08:59 Last Admin: 12/24/24 07:54 Dose: 20 meq
[2024-12-24 13:49] VITALS: PULSE 92
--- NOTE | 2024-12-25 08:31 | Discharge Summary ---
Date of Service December 25, 2024 Admission HPI Per Admitting Provider History obtained from patient and records. Medical history significant for chronic diastolic heart failure (EF 55%, TTE 2023), hypertension, hyperlipidemia, bronchial asthma, JOLYNN on CPAP, morbid obesity, GERD, IBS, allergic rhinitis/eosinophilia as per records, migraine, mood disorder. Last confinement December 2019 under General Surgery service for acute calculous cholecystitis status post surgery. 2 days history of clear sputum associated with worsening shortness of breath. No chest pain. No unusual fluid retention. Denies aspiration. Right lower leg more swollen than usua. 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 Patient consulted [facility] ER yesterday. Unremarkable workup as per patient. Patient given a dose of steroids and nebs at ER and told to follow-up with PCP. Worsening wheezing at home. Denies headache symptoms. Patient directed to ER for evaluation. Solu-Medrol, neb treatment administered at the ER SBP 190s upon arrival at the ER. Patient feeling much better. Medical History as above Surgical History : Breast lesion excision, section, D&C, urologic procedure, tonsillectomy/adenectomy, cholecystectomy Family History : Breast cancer, celiac disease, vaginal cancer Personal/Social history : Non-smoker, no EtOH intake, middle school principal Admission Exam Per Admitting Provider Physical Exam: GENERAL: Comfortable, pleasant, morbidly obese, no respiratory distress SKIN: Normal color, warm HEENT: [place] palpebral conjunctivae, no ptosis, dry buccal mucosa NECK : Supple, short neck, no tenderness CHEST : Decreased breath sounds, expiratory wheezes, no tenderness HEART : RRR, no obvious murmurs ABDOMEN: Some distention, nontender EXTREMITIES : Bilateral LE swelling, no LE tenderness, palpable pulses, no other conspicuous deformities noted NEUROLOGIC : Coherent, no facial asymmetry, no other gross focality Principal Diagnosis Acute asthma exacerbation due to rhino-enterovirus infection Discharge Exam Lying in bed without any acute distress Constitutional well developed, well nourished, + ill appearing and + obese Eyes PERRL, conjunctivae normal, anicteric sclerae ENMT external ear and nose normal, oropharynx normal Neck trachea midline, no thyromegaly Respiratory + respiratory distress (Minimal respiratory distress) Auscultation: + diminished lung sounds and + wheezes ( improved wheezing bila terally); no crackles Cardiovascular Rate/Rhythm: regular rate and regular rhythm; not tachycardic Heart Sounds: normal S1 and normal S2; no murmur Extremities: no edema Gastrointestinal (Abdomen) Inspection/Auscultation: normal bowel sounds; abdomen not distended Percussion/Palpation: abdomen soft; abdomen nontender Neurologic normal touch/pain/proprioception and moves all extremities; no focal motor deficits Psychiatric A+Ox3, euthymic affect Lymphatic no cervical or axillary lymphadenopathy Discharge Data Allergies Allergy/AdvReac Type Severity Reaction Status Date / Time bee venom protein (honey bee) Allergy Severe Anaphylaxis Verified 12/20/24 18:28 Influenza Virus Vaccines Allergy Severe SEVERE Verified 12/20/24 18:28 REACTION. HOSPITALIZED--ICU X 3 DAYS lavender (Lavandula Allergy Severe Wheezing Verified 12/20/24 18:28 angustifolia) pneumococcal vaccine Allergy Severe SEVERE Verified 12/20/24 18:28 REACTION. HOSPITALIZED--ICU X 3 DAYS nickel Allergy Mild itchy rash Verified 12/20/24 18:28 Consultations 12/20/24 19:05 ED Decision to Admit Stat Ordered Studies 12/20/24 21:27 US venous duplex leg [US venous doppler LE RT] Stat Hospital Course (1) Acute asthma exacerbation: Assessment and plan below following discussion of case with ED provider and reviewing patient history/pertinent normal/abnormal diagnostic test results. Acute asthma exacerbation Secondary to entero-/rhinovirus infection No sepsis for now Improved symptoms after initial ER intervention Has been on intravenous Solu-Medrol and nebulized bronchodilator Clinically much better and saturating normally on room air Likely discharge in a day or 2 on tapering dose of steroid Wanted to go home but he still has considerable wheezing Failed 2 steps O2 saturation test due to increased in cough and shortness of breath Nebulized bronchodilators has been changed and Solu-Medrol increased to 60 mg twice daily Clinically not any better and he still has profuse wheezing and shortness of breath with exertion Will increase her Solu-Medrol to 60 mg twice daily and also give her 40 milligram of Lasix intravenously to have more diuresis Will continue nebulized bronchodilator and check electrolytes tomorrow Clinically much better with less wheezing and no shortness of breath more than usual with activities She has had 2 steps O2 saturation test and does not require any oxygen She will be discharged home this afternoon- advised to take rest for the next day or 2 and go back to work on Monday Other significant medical conditions remained stable and are as below: Right leg swelling rule out DVTno evidence of DVT Chronic diastolic heart failure (EF 55%, TTE 2023), patient euvolemic to dry Hypertension, elevated secondary to illness-Initiate losartan if persistent BP elevation Hyperlipidemia, not on statin Rx JOLYNN on CPAP Morbid obesity Mood disorder, stable DVT prophylaxis. Lovenox subcu Full code Text document was generated using [employer] voice recognition software. It may contain grammatical or spelling errors. Kindly contact undersigned for clarification of any documentation item in question. Total Time Total Time Spent Total Time Spent (In Minutes): 35 Minutes Discharge Plan Discharge Items Patient Disposition: Home - Self-Care Reason For Visit: SOB Discharge Diagnosis: Acute asthma exacerbation due to rhino-enterovirus infection Condition on Discharge: Fair Activity: Resume your previous activity Non-emergency contact: Primary Care Provider Call non-emergency contact if: you have any medication questions and your symptoms worsen Follow-up/Referrals: Radha Bardales MD [Primary Care Provider] - (Date & Time 12/30/2024 12:20 PM Provider: Radha Bardales MD [facility] ) Diet: Heart Healthy Addtl Attending Provider Instructions: Please take precautions to avoid falls Take the medications as advised- finish the tapering dose of steroids You can go back to work on Monday You can try some cough medicine [id number] Please keep appointments with the healthcare providers Pending Studies at Discharge: No Stand-Alone Forms: [email or web address], Work/School Release, Smoking Cessation Medications and DC Order Prescriptions: New losartan 25 mg Tablet 25 mg PO QAM Qty: 30 0RF prednisone 10 mg tablet 10 mg PO DIRECTED Qty: 30 0RF Rx Instructions: 4 p.o. daily for 3 days, 3 p.o. daily for 3 days, 2 p.o. daily for 3 days and then 1 p.o. daily for 3 days Continued omeprazole 20 mg capsule,delayed release(DR/EC) 20 mg PO QAM montelukast 10 mg tablet 10 mg PO HS albuterol sulfate 90 mcg/actuation HFA aerosol inhaler 2 inh INHALATION Q4 PRN (Reason: Wheezing) epinephrine 0.3 mg/0.3 mL auto-injector 0.3 mg IM UD PRN (Reason: Allergic Reaction) albuterol sulfate 2.5 mg /3 mL (0.083 %) Solution For Nebulization 2.5 mg INHALATION Q4H PRN (Reason: Shortness Of Breath Or Wheezing) cetirizine [Zyrtec] 10 mg Tablet 10 mg PO DAILY pediatric multivitamin Tablet,Chewable 1 tab PO DAILY tetrahydrozoline [Visine] 0.05 % Drops 1 drp OPB DIRECTED PRN (Reason: NEEDED) cyanocobalamin (vitamin B-12) [Vitamin B-12] 500 mcg Tablet 500 mcg PO DAILY Rx Instructions: GUMMIES ascorbic acid (vitamin C) [Vitamin C] 500 mg Tablet 500 mg PO DAILY furosemide 80 mg tablet 80 mg PO BID ibuprofen 200 mg Tablet 800 mg PO BID ergocalciferol (vitamin D2) [Vitamin D2] 1,250 mcg (50,000 unit) Capsule 1,250 mcg PO 3XWK Rx Instructions: MON, WED, FRI fluticasone propion-salmeterol [Advair HFA] 230-21 mcg/actuation Hfa Aerosol Inhaler 2 puff INHALATION BID milk thistle seed extract 250 mg Capsule 250 mg PO DAILY Rx Instructions: give with meal/snack gabapentin 300 mg capsule 300 mg PO BID Discharge Orders: Discharge Order (Routine); Ordered 12/24/24 Ordered By: Katherine Abreu/Other Patient Handouts: Acute Bronchitis Admission Data Admit Date/Time: 12/22/24 16:41 Attending Provider: Katherine Rodriguez Admit Provider: Marco Victor Primary Care Provider: Radha Bardales Other Providers: Marco Victor Other Interventions: Discharge Summary Assessment (RN) Last Done: 12/24/24 13:14
== END 2024-12-24 15:00 | disposition home or self-care (01) | DRG 202 ==
LOC: 2W 15:26 → ED 15:26 → 2W 12-21 00:03